=== PATIENT | female | born 1990 | race Caucasian/White ===

== ENCOUNTER 2019-07-09 03:27 | Emergency (ER) | payer OTHER ==
--- OUTSIDE RECORDS SUMMARY | 2019-07-09 03:30 | XMS REPORT ---
:1990 [facility] Address [address] [place] [address] [address] [place] [address] Care Team Providers Name Role Phone Unavailable Unavailable Unavailable Payers Payer Name Policy Type Policy Number Effective Date Expiration Date Problems This patient has no known problems. Allergies, Adverse Reactions, Alerts Allergy Allergy Status Severity Reaction(s) Onset Inactive Treating Comments Name Type Date Date Clinician sesar MARTINEZ Active MO 2017-11 00:00:0 0 Medications This patient has no known medications. Results Test Description Test Time Test Comments Text Results Atomic Results Result Comments - US PELVIS COMPLETE 2018-11-03 18:11:00 Patient Name: SHAUN KENT Unit No: [id number] EXAMS: CPT CODE: [id number] US PELVIS COMPLETE 96473 Pelvic US performed November 03, 2018 1752 hours. COMPARISON: None. CLINICAL HISTORY: Right lower quadrant pain. DISCUSSION: Real-time kessler scale sonography performed of the pelvis via the transabdominal and transvaginal approach. The uterus measures 89 x 39 x 54 mm and contains no posterior intramural fibroid measuring 18 x 12 x 15 mm. The endometrium is homogenous and measures 9 mm in thickness. The left ovary is sonographically normal in appearance measuring 36 x 26 x 26 mm. The right ovary measures 77 x 58 x 59 mm. It contains a complex cyst with lacelike echoes measuring 58 x 47 x 53 mm. Findings are compatible with hemorrhagic cyst. Subcentimeter follicles are seen bilaterally. Normal flow seen in both ovaries. No significant free fluid in seen in the cul de sac. IMPRESSION: 1. Probable hemorrhagic cyst in the right ovary measuring 58 x 47 x 53 mm. Short-term follow-up ultrasound to ensure resolution is advised.. at 1811 Reported and signed by: Jacki Gallagher MD CC: Fco Grant Technologist: Maria Teresa Rodriguez RDMS Probe: Trnscrbd D/ (1810) RochelleNMG Orig Print D/T: S: 11/03/2018 (181) [facility] NAME: YOLISHAUN M Radiology Department PHYS: Fco Boston MD [address] : 1990 AGE: 27 SEX: F [place] [address] LOC: JonhRAD PHONE #: [phone] EXAM DATE: 11/03/2018 STATUS: REG CLI FAX #: [phone] RAD NO: Page 1 Signed Report Patient Name: SHAUN KENT Unit No: [id number] EXAMS: CPT CODE: [id number] US PELVIS COMPLETE 69145 <Continued> [facility] NAME: SHAUN KENT Radiology Department PHYS: Fco Boston MD [address] : 1990 AGE: 27 SEX: F [place] [address] LOC: JonhRAD PHONE #: [phone] EXAM DATE: 11/03/2018 STATUS: REG CLI FAX #: [phone] RAD NO: Page 2 Signed Report - US TRANSVAGINAL W/PELVIS 2018-11-03 18:11:00 Patient Name: SHAUN KENT Unit No: [id number] EXAMS: CPT CODE: [id number] US TRANSVAGINAL W/PELVIS 88251 Pelvic US performed November 03, 2018 1752 hours. COMPARISON: None. CLINICAL HISTORY: Right lower quadrant pain. DISCUSSION: Real-time kessler scale sonography performed of the pelvis via the transabdominal and transvaginal approach. The uterus measures 89 x 39 x 54 mm and contains no posterior intramural fibroid measuring 18 x 12 x 15 mm. The endometrium is homogenous and measures 9 mm in thickness. The left ovary is sonographically normal in appearance measuring 36 x 26 x 26 mm. The right ovary measures 77 x 58 x 59 mm. It contains a complex cyst with lacelike echoes measuring 58 x 47 x 53 mm. Findings are compatible with hemorrhagic cyst. Subcentimeter follicles are seen bilaterally. Normal flow seen in both ovaries. No significant free fluid in seen in the cul de sac. IMPRESSION: 1. Probable hemorrhagic cyst in the right ovary measuring 58 x 47 x 53 mm. Short-term follow-up ultrasound to ensure resolution is advised.. at 1811 Reported and signed by: Jacki Gallagher MD CC: Fco Grant Technologist: Maria Teresa Rodriguez [facility] Probe: [id number] Trnscrbd D/ (1810) MaryG Orig Print D/T: S: 11/03/2018 (1814) [facility] NAME: YOLISHAUN M Radiology Department PHYS: Fco Boston MD [address] : 1990 AGE: 27 SEX: F [place] [address] LOC: Natanael.RAD PHONE #: [phone] EXAM DATE: 11/03/2018 STATUS: REG CLI FAX #: [phone] RAD NO: Page 1 Signed Report Patient Name: SHAUN KENT Unit No: [id number] EXAMS: CPT CODE: [id number] US TRANSVAGINAL W/PELVIS 79615 <Continued> [facility] NAME: SHAUN KENT Radiology Department PHYS: Fco Boston MD [address] : 1990 AGE: 27 SEX: F [place] [address] LOC: Natanael.RAD PHONE #: [phone] EXAM DATE: 11/03/2018 STATUS: REG CLI FAX #: [phone] RAD NO: Page 2 Signed Report PLACENTA THIRD TRIMESTER 2017 14:54:00 ---- RUN DATE: 12/04/17 [facility] PAGE 1 RUN TIME: 1528 Specimen Inquiry RUN USER: INTERFACE PATIENT: SHAUN KENT LOC: [place]ACA U #: [id number] AGE/SX: 27/F [facility] RE12/01/17REG DR: Fco Grant MD : [birth year] BED: A DIS: STATUS: ADM IN TLOC: SPEC #: [id number] RECD: 12/03/17 STATUS: KIRK REQ #: [id number] LOREN: 12/03/17- SUBM DR: Fco Grant MD ENTERED: 12/03/17 SP TYPE: PLACIII CATHY BELLAMY: ORDERED: LEVEL V SURGICA CODES: [id number] - PLACENTA, NOS PROCEDURES: LEVEL V SURGICA (Incomplete) TISSUES: PLACENTA, NOS - PLACENTA CLINICAL HISTORY 26 year old, 38.4 weeks, G1T1P1, section, chorioamnionitis (kr) FINAL DIAGNOSIS Placenta, umbilical cord and membranes: - decidual vasculopathy - placenta is small for gestational age (447 gm, expected weight between 499 and 519 gm) - chorioamnionitis is not identified in the sections taken - trivascular, 19 cm cord inserts 6 cm from the margin Tissue code 1 CPT code(s): 17039 [facility]ora 12/04/17 @ 1660 GROSS DESCRIPTION The specimen was received in a container labeled with the patient's name, unit number, and designated "placenta". The following attributes are observed: Cord insertion: 6 cm from margin Cord length: 19 cm Number of vessels: 3 Cord color: Blue-tomlinson Other cord findings: None surface findings: Steel blue, wrinkled, glistening Vasculature: Displays unremarkable blood vasculature Membranes rupture site: 7 cm to margin Membrane color: Tomlinson Other membrane findings: Thickened and opaque The trimmed placental weight: 447 gm Disk measurement: 20 x 18 x 3.3 cm in greatest dimension Accessory lobes: None CONTINUED ON NEXT PAGE RUN DATE: 12/04/17 [facility] PAGE 2 RUN TIME: 1528 Specimen Inquiry RUN USER: INTERFACE SPEC #: [id number] PATIENT: SHAUN KENT Andrew #[id number] (Continued) - GROSS DESCRIPTION (Continued) Maternal surface: Lobulated and intact Parenchyma: Red, beefy, and spongy Parenchyma lesions: None Cassettes: A through D hz/wpd 12/03/17 @ 1120 MICROSCOPIC DESCRIPTION There is decidual vasculopathy. Chorioamnionitis is not identified in the sections taken. The placenta is small for gestational age. nitin/aurora 12/04/17 @ 1451 Signed Sherwin Tenorio 12/04/17 1454 END OF REPORT
[2019-07-09 04:44] LABS: Absolute Lymphocytes (CBC) 3.1 K/uL (0.7-4.9); Basophils % 0.8 % (0-1.3); Hematocrit 39.7 % (36.0-45.0); Lymphocytes % 35.4 % (15.3-44.8); MPV 9.3 fL (7.6-11.3); RBC Red Blood Cell Count 4.77 M/uL (3.86-4.86)
[2019-07-09 05:03] LABS: Albumin 3.5 g/dL (3.4-5.0); Bilirubin Direct 0.1 mg/dL (0-0.2); Bilirubin Total 0.4 mg/dL (0.2-1.0); Potassium 3.4 mmol/L (3.5-5.1); Protein, Total 7.1 g/dL (6.4-8.2)
[2019-07-09] MEDS ORDERED: POTASSIUM CL SA 10 MEQ TAB PO ONE (06:01)
--- NOTE | 2019-07-09 06:11 | ER ---
Nurse's Notes [facility] Name: Marie Rubio Age: 28 yrs Sex: Female : 1990 Arrival Date: 07/09/2019 Time: 03:31 Bed 5 Private MD: Diagnosis: 1 st Trimester . ( IVF ) Abdominal pain. Headache Presentation: 07/08 03:45 Chief complaint: Patient states: periumbilical abd pain for past couple days and aa1 headache since last night. Pt reports she is also currently 5 weeks . Coronavirus screen: The patient has NOT traveled to a country currently being monitored by the [facility] within the last 14 days. Proceed with normal triage procedures. Ebola Screen: No symptoms or risks identified at this time. Initial Sepsis Screen: Does the patient meet any 2 criteria? No. Patient's initial sepsis screen is negative. Does the patient have a suspected source of infection? No. Patient's initial sepsis screen is negative. Risk Assessment: Do you want to hurt yourself or someone else? Patient reports no desire to harm self or others. Care prior to arrival: None. Activity prior to arrival: None. Transition of care: patient was not received from another setting of care. 03:45 Method Of Arrival: Ambulatory aa1 03:45 Acuity: NABIL 3 aa1 05:04 Onset of symptoms is unknown. ll1 Triage Assessment: 05:03 Headache History: The patient has had previous headaches and this one is similar to ll1 previous episodes. General: Appears in no apparent distress. Pain: Complains of pain in head Pain currently is 4 out of 10 on a pain scale. Quality of pain is described as aching, Pain began 1 day ago. Also complains of no other associated symptoms. FRAME BENDER: 03:45 LMP 06/07/2019 aa1 Historical: - Allergies: 03:51 Codeine; aa1 - Home Meds: 03:51 progesterone micronized oral oral [Active]; Vitamin Oral [Active]; aa1 - PMHx: 03:51 Asthma; aa1 - PSHx: 03:51 ; aa1 - Immunization history:: Flu vaccine is not up to date. - Social history:: Smoking status: Patient/guardian denies using tobacco, the patient reports quitting approximately 5 years ago. Screenin:02 Abuse screen: Denies threats or abuse. Nutritional screening: No deficits noted. ll1 Tuberculosis screening: No symptoms or risk factors identified. Fall Risk None identified. Assessment: 05:00 General: Appears in no apparent distress. Behavior is calm, cooperative. Pain: ll1 Complains of pain in head Pain currently is 4 out of 10 on a pain scale. Quality of pain is described as aching, Pain began 1 day ago. Neuro: Level of Consciousness is awake, alert, obeys commands, Oriented to person, place, time, situation, Top Distribution Executive are equal bilaterally Moves all extremities. Full function Gait is steady, Speech is normal, Facial symmetry appears normal, Pupils are PERRLA, Reports headache in entire. GI: Abdomen is flat, Bowel sounds present X 4 quads. Abd is soft and non tender X 4 quads. Reports mid abdominal pain. 5 weeks . 06:09 Reassessment: No changes from previously documented assessment. Patient and/or family ll1 updated on plan of care and expected duration. Pain level reassessed. Patient is alert, oriented x 3, equal unlabored respirations, skin warm/dry/pink. Vital Signs: 03:45 BP 117 / 86; Pulse 90; Resp 16; Temp 98.7; Pulse Ox 100% on R/A; Weight 72.57 kg; aa1 Height 5 ft. 4 in. (162.56 cm); Pain 4/10; 06:05 BP 109 / 71; Pulse 88; Resp 17; Temp 98.0; Pulse Ox 100% ; Pain 6/10; ll1 03:45 Body Mass Index 27.46 (72.57 kg, 162.56 cm) aa1 06:05 Still doesn't want pain medication. ll1 ED Course: 03:31 Patient arrived in ED. es 03:45 Patient placed in an exam room, on a stretcher. aa1 03:48 Triage completed. aa1 03:57 Rusty Estrada MD is Attending Physician. pkl 04:14 Jodie Parra, HEMA is Primary Nurse. ll1 04:30 Inserted saline lock: 20 gauge in right antecubital area, using aseptic technique. ll1 Blood collected. 05:03 Arm band placed on right wrist. ll1 05:05 Patient has correct armband on for positive identification. ll1 06:06 No provider procedures requiring assistance completed. IV discontinued, intact, ll1 bleeding controlled, No redness/swelling at site. Pressure dressing applied. Administered Medications: 05:59 Drug: K-Dur 20 mEq Route: PO; ll1 06:10 Follow up: Response: No adverse reaction; RASS: Alert and Calm (0) 1 Outcome: 06:08 Discharge ordered by . lucian 06:33 Discharged to home ambulatory. ll1 06:33 Condition: stable 06:33 Discharge instructions given to patient, Instructed on discharge instructions, follow up and referral plans. Demonstrated understanding of instructions, follow-up care. 06:34 Patient left the ED. 1 Signatures: Annemarie Dumont RN RN aa1 Rusty Estrada MD MD pk Nichole Khan Lynsay, RN RN ll1
--- NOTE | 2019-07-09 06:11 | EDPHYS ---
Physician Documentation [facility] Name: Marie Rubio Age: 28 yrs Sex: Female : 1990 Arrival Date: 07/09/2019 Time: 03:31 Bed 5 Private MD: ED Physician Rusty Estrada HPI: 07/08 05:58 This 28 yrs old Female presents to ER via Ambulatory with complaints of pkl Headache, Abdominal Pain, 5wks preg. 05:58 The patient complains of pain to the top of head and forehead. The patient describes pkl the headache as intermittent. Onset: The symptoms/episode began/occurred 2 day(s) ago. Patent said she is about 5 weeks ( IVF ). 05:58 Associated signs and symptoms: Pertinent positives: Periumbilical pain. pkl INTAKE RN: 03:45 LMP 06/07/2019 aa1 Historical: - Allergies: 03:51 Codeine; aa1 - Home Meds: 03:51 progesterone micronized oral oral [Active]; Vitamin Oral [Active]; aa1 - PMHx: 03:51 Asthma; aa1 - PSHx: 03:51 ; aa1 - Immunization history:: Flu vaccine is not up to date. - Social history:: Smoking status: Patient/guardian denies using tobacco, the patient reports quitting approximately 5 years ago. ROS: 05:58 Eyes: Negative for injury, pain, redness, and discharge, ENT: Negative for injury, pkl pain, and discharge, Neck: Negative for injury, pain, and swelling, Cardiovascular: Negative for chest pain, palpitations, and edema, Respiratory: Negative for shortness of breath, cough, wheezing, and pleuritic chest pain. 05:58 Abdomen/GI: Positive for of the periumbilical pain. 05:58 Back: Negative for acute changes. 05:58 : Negative for urinary symptoms. 05:58 MS/extremity: Negative for acute changes. 05:58 Skin: Negative for rash. 05:58 Neuro: Negative for altered mental status. Exam: 05:58 Head/Face: Normocephalic, atraumatic. Eyes: Pupils equal round and reactive to light, pkl extra-ocular motions intact. Lids and lashes normal. Conjunctiva and sclera are non-icteric and not injected. Cornea within normal limits. Periorbital areas with no swelling, redness, or edema. ENT: Nares patent. No nasal discharge, no septal abnormalities noted. Tympanic membranes are normal and external auditory canals are clear. Oropharynx with no redness, swelling, or masses, exudates, or evidence of obstruction, uvula midline. Mucous membranes moist. Neck: Trachea midline, no thyromegaly or masses palpated, and no cervical lymphadenopathy. Supple, full range of motion without nuchal rigidity, or vertebral point tenderness. No Meningismus. Chest/axilla: Normal chest wall appearance and motion. Nontender with no deformity. No lesions are appreciated. Cardiovascular: Regular rate and rhythm with a normal S1 and S2. No gallops, murmurs, or rubs. Normal PMI, no JVD. No pulse deficits. Respiratory: Lungs have equal breath sounds bilaterally, clear to auscultation and percussion. No rales, rhonchi or wheezes noted. No increased work of breathing, no retractions or nasal flaring. Abdomen/GI: Soft, non-tender, with normal bowel sounds. No distension or tympany. No guarding or rebound. No evidence of tenderness throughout. Back: No spinal tenderness. No costovertebral tenderness. Full range of motion. Skin: Warm, dry with normal turgor. Normal color with no rashes, no lesions, and no evidence of cellulitis. MS/ Extremity: Pulses equal, no cyanosis. Neurovascular intact. Full, normal range of motion. Neuro: Awake and alert, GCS 15, oriented to person, place, time, and situation. Cranial nerves II-XII grossly intact. Motor strength 5/5 in all extremities. Sensory grossly intact. Cerebellar exam normal. Normal gait. 05:58 : No vaginal bleeding. Vital Signs: 03:45 BP 117 / 86; Pulse 90; Resp 16; Temp 98.7; Pulse Ox 100% on R/A; Weight 72.57 kg; aa1 Height 5 ft. 4 in. (162.56 cm); Pain 4/10; 06:05 BP 109 / 71; Pulse 88; Resp 17; Temp 98.0; Pulse Ox 100% ; Pain 6/10; ll1 03:45 Body Mass Index 27.46 (72.57 kg, 162.56 cm) aa1 06:05 Still doesn't want pain medication. ll1 MDM: 03:57 Patient medically screened. pkl 05:58 Data reviewed: vital signs, nurses notes, lab test result(s). ED course: Discussed lab. pkl results with patient. Advised to followup with her fertility Doctor on Thursday. Return if necessary. Patient understood instructions. 07/08 04:17 Order name: Abo/rh Typing; Complete Time: 05:53 aa07/08 04:17 Order name: Basic Metabolic Panel; Complete Time: 05:53 07/08 04:17 Order name: CBC with Diff; Complete Time: 05:53 07/08 04:17 Order name: Quantitative Hcg; Complete Time: 05:53 aa07/08 04:17 Order name: Lipase; Complete Time: 05:53 07/08 04:17 Order name: LFT's; Complete Time: 05:53 07/08 04:17 Order name: IV Saline Lock; Complete Time: 06:12 aa07/08 04:17 Order name: Labs collected and sent; Complete Time: 06:12 aa Administered Medications: 05:59 Drug: K-Dur 20 mEq Route: PO; ll1 06:10 Follow up: Response: No adverse reaction; RASS: Alert and Calm (0) ll1 Disposition: 07/09/19 06:08 Discharged to Home. Impression: 1 st Trimester . ( IVF ) Abdominal pain. Headache. - Condition is Stable. - Medication Reconciliation Form, Thank You Letter, Antibiotic Education, Prescription Opioid Use form. - Follow up: Private Physician; When: 2 - 3 days; Reason: Re-evaluation by your physician. - Problem is new. - Symptoms have improved. Signatures: Dispatcher [employer] Annemarie Chavira RN RN aa1 Rusty Estrada MD MD pkl Jodie Parra RN RN ll1 Corrections: (The following items were deleted from the chart) 06:34 06:08 07/09/2019 06:08 Discharged to Home. Impression: 1 st Trimester . ( IVF ll1 ) Abdominal pain. Headache. Condition is Stable. Forms are Medication Reconciliation Form, Thank You Letter, Antibiotic Education, Prescription Opioid Use. Follow up: Private Physician; When: 2 - 3 days; Reason: Re-evaluation by your physician. Problem is new. Symptoms have improved. pkl
[2019-07-09 06:54] VITALS: O2SAT 100
[2019-07-09 06:56] VITALS: BP 109/71; TEMP 98
== END 2019-07-09 06:34 | disposition home or self-care (01) ==
LOC: ER 03:27
DX: O26.891 Other specified pregnancy related conditions, first trimester (principal); Z3A.01 Less than 8 weeks gestation of pregnancy; Z88.5 Allergy status to narcotic agent
CPT/HCPCS: 36415; 80048; 80076; 83690; 84702; 85025; 86900; 86901; 99283

== ENCOUNTER 2022-05-20 17:16 | Emergency (ER) | payer OTHER ==
--- OUTSIDE RECORDS SUMMARY | 2022-05-20 17:20 | XMS REPORT | Continuity of Care Document ---
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 = NA) 135 mEq/L 135-145 N POTASSIUM (test code = K) 4.0 mEq/L 3.5-5.0 N CHLORIDE (test code = CL) 103 mEq/L 100-115 N CARBON DIOXIDE (test code = CO2) 26 mEq/L 22-31 N ANION GAP (test code = GAP) 9.80 10-20 L GLUCOSE (test code = GLU) 94 mg/dL 65-110 N BLOOD UREA NITROGEN (test code = 5 mg/dL 7-18 L BUN) GLOMERULAR FILTRATION RATE (test 98 ml/min >60 N code = GFR) CREATININE (test code = CREAT) 0.7 mg/dL 0.5-1.0 N CALCIUM (test code = CA) 7.8 mg/dL 8.4-10.2 L HGB [id number] 07:14:00 Test Item Value Reference Range Interpretation Comments HEMOGLOBIN (test code = HGB) 8.9 g/dL 10.7-13.9 L HEMATOCRIT (test code = HCT) 27.1 % 32.1-42.1 L COMPREHENSIVE METABOLIC [id number] 00:48:00 Test Item Value Reference Range Interpretation Comments SODIUM (test code = NA) 133 mEq/L 135-145 L POTASSIUM (test code = K) 3.8 mEq/L 3.5-5.0 N CHLORIDE (test code = CL) 101 mEq/L 100-115 N CARBON DIOXIDE (test code = CO2) 27 mEq/L 22-31 N ANION GAP (test code = GAP) 8.70 10-20 L GLUCOSE (test code = GLU) 134 mg/dL 65-110 H BLOOD UREA NITROGEN (test code = 4 mg/dL 7-18 L BUN) GLOMERULAR FILTRATION RATE (test 98 ml/min >60 N code = GFR) CREATININE (test code = CREAT) 0.7 mg/dL 0.5-1.0 N TOTAL PROTEIN (test code = PROT) 4.5 gm/dL 6.3-8.2 L ALBUMIN (test code = ALB) 2.1 gm/dL 3.4-4.8 L CALCIUM (test code = CA) 7.6 mg/dL 8.4-10.2 L BILIRUBIN TOTAL (test code = BILT) 0.3 mg/dL 0.2-1.0 N SGOT/AST (test code = AST) 17 units/L 15-37 N SGPT/ALT (test code = ALT) 15 units/L 12-78 N ALKALINE PHOSPHATASE TOTAL (test 75 units/L 46-116 N code = ALKP) PROTHROMBIN [id number] 00:47:00 Test Item Value Reference Range Interpretation Comments PROTHROMBIN TIME PATIENT (test code 10.9 secs 10.4-12.4 N = PTP) THROMBOPLASTIN TIME [id number] 00:47:00 Test Item Value Reference Range Interpretation Comments THROMBOPLASTIN TIME PARTIAL (test 24.9 secs 22-38 N code = PTT) [id number] 00:47:00 Test Item Value Reference Range Interpretation Comments FIBRINOGEN (test code = FIB) 227 mg/dL 309-518 L HGB [id number] 00:34:00 Test Item Value Reference Range Interpretation Comments HEMOGLOBIN (test code = HGB) 10.0 g/dL 10.7-13.9 L HEMATOCRIT (test code = HCT) 29.6 % 32.1-42.1 L PROTHROMBIN [id number] 18:39:00 Test Item Value Reference Range Interpretation Comments PROTHROMBIN TIME PATIENT (test code 11.1 secs 10.4-12.4 N = PTP) Comments to [employer]: [id number] TIME [id number] 18:39:00 Test Item Value Reference Range Interpretation Comments THROMBOPLASTIN TIME PARTIAL (test 24.8 secs 22-38 N code = PTT) Comments to [employer] Associate: [id number] 18:39:00 Test Item Value Reference Range Interpretation Comments FIBRINOGEN (test code = FIB) 253 mg/dL 309-518 L Comments to [employer] Associate: [id number] METABOLIC [id number] 18:36:00 Test Item Value Reference Range Interpretation Comments SODIUM (test code = NA) 137 mEq/L 135-145 N POTASSIUM (test code = K) 3.3 mEq/L 3.5-5.0 L CHLORIDE (test code = CL) 103 mEq/L 100-115 N CARBON DIOXIDE (test code = CO2) 27 mEq/L 22-31 N ANION GAP (test code = GAP) 10.10 10-20 N GLUCOSE (test code = GLU) 183 mg/dL 65-110 H BLOOD UREA NITROGEN (test code = 5 mg/dL 7-18 L BUN) GLOMERULAR FILTRATION RATE (test 98 ml/min >60 N code = GFR) CREATININE (test code = CREAT) 0.7 mg/dL 0.5-1.0 N TOTAL PROTEIN (test code = PROT) 4.9 gm/dL 6.3-8.2 L ALBUMIN (test code = ALB) 2.2 gm/dL 3.4-4.8 L CALCIUM (test code = CA) 7.7 mg/dL 8.4-10.2 L BILIRUBIN TOTAL (test code = BILT) 0.2 mg/dL 0.2-1.0 N SGOT/AST (test code = AST) 13 units/L 15-37 L SGPT/ALT (test code = ALT) 13 units/L 12-78 N ALKALINE PHOSPHATASE TOTAL (test 89 units/L 46-116 N code = ALKP) CBC W/AUTO [id number] 18:07:00 Test Item Value Reference Range Interpretation Comments WHITE BLOOD CELL (test 12.2 K/mm3 6.6-12.1 H Resul ts verified by code = WBC) repeat analysis RED BLOOD CELL (test 3.35 M/mm3 3.45-5.01 L Results verified by code = RBC) repeat analysis HEMOGLOBIN (test code = 9.6 g/dL 10.7-13.9 L HGB) HEMATOCRIT (test code = 30.1 % 32.1-42.1 L HCT) MEAN CELL VOLUME (test 90 fL 84.1-94.8 N code = MCV) MEAN CELL HGB (test code 28.7 pg 27-35 N = MCH) MEAN CELL HGB 31.9 gm/dL 32.2-34.1 L CONCETRATION (test code = MCHC) RED CELL DISTRIBUTION 13.9 % 12.4-16.5 N WIDTH (test code = RDW) PLATELET COUNT (test 215 K/mm3 133-385 N code = PLT) MEAN PLATELET VOLUME 11.4 fl 9.1-12.7 N (test code = MPV) NEUTROPHIL % (test code 82.9 % 56.5-79.4 H = NT%) LYMPHOCYTE % (test code 13.0 % 14.3-34.3 L = LY%) MONOCYTE % (test code = 2.6 % 5.1-10.4 L MO%) EOSINOPHIL % (test code 0.2 % 0.1-3.0 N = EO%) BASOPHIL % (test code = 0.2 % 0.1-1.0 N BA%) NEUTROPHIL # (test code 10.1 K/mm3 = NT#) LYMPHOCYTE # (test code 1.6 K/mm3 = LY#) MONOCYTE # (test code = 0.3 K/mm3 MO#) EOSINOPHIL # (test code 0.03 K/mm3 = EO#) BASOPHIL # (test code = 0.0 K/mm3 BA#) RBC MORPHOLOGY REQUIRED NORMAL NORMAL (test code = RBCM) PLATELET MORPHOLOGY NORMAL NORMAL REQUIRED (test code = PLTMR) AG HEPATITIS B [id number] 15:19:00 Test Item Value Reference Range Interpretation Comments AG HEPATITIS B SURFACE (test code NONREACTIVE NONREACTIVE = HBSAG) Comments to [employer] Associate: [id number] CONSENT FORM SIGNED FOR HIV TESTING? YAB HEPATITIS C [id number] 15:19:00 Test Item Value Reference Range Interpretation Comments AB HEPATITIS C (test code = NONREACTIVE NONREACTIVE HCVAB) SIGNAL TO CUTOFF (test code = 0.08 <0.80 N CUTOFF) Comments to [employer] Associate: [id number] CONSENT FORM SIGNED FOR HIV TESTING? YAB [id number] 15:19:00 Test Item Value Reference Range Interpretation Comments AB TREPONEMA (test code = TREPAB) NONREACTIVE NONREACTIVE Comments to [employer] Associate: [id number] CONSENT FORM SIGNED FOR HIV TESTING? YAB HIV 1 15:19:00 Test Item Value Reference Range Interpretation Comments AB HIV 1 2 (test NONREACTIVE NONREACTIVE [facility] code = [id number]) 4th Gen HIV Ag/Ab Combo Screen Comments to [employer] Associate: [id number] CONSENT FORM SIGNED FOR HIV TESTING? YAG HEPATITIS B [id number] 15:18:00 Test Item Value Reference Range Interpretation Comments AG HEPATITIS B SURFACE (test code NONREACTIVE NONREACTIVE = HBSAG) Comments to [employer] Associate: [id number] CONSENT FORM SIGNED FOR HIV TESTING? YAB HEPATITIS C [id number] 15:18:00 Test Item Value Reference Range Interpretation Comments AB HEPATITIS C (test code = NONREACTIVE NONREACTIVE HCVAB) SIGNAL TO CUTOFF (test code = 0.08 <0.80 N CUTOFF) Comments to [employer] Associate: [id number] CONSENT FORM SIGNED FOR HIV TESTING? YAB [id number] 15:18:00 Test Item Value Reference Range Interpretation Comments AB TREPONEMA (test code = TREPAB) NONREACTIVE NONREACTIVE Comments to [employer] Associate: [id number] CONSENT FORM SIGNED FOR HIV TESTING? YAB HIV 1 15:18:00 Test Item Value Reference Range Interpretation Comments AB HIV 1 2 (test code = [id number]) NONREACTIVE Comments to [employer] Associate: [id number] CONSENT FORM SIGNED FOR HIV TESTING? YAG HEPATITIS B [id number] 15:00:00 Test Item Value Reference Range Interpretation Comments AG HEPATITIS B SURFACE (test code NONREACTIVE NONREACTIVE = HBSAG) Comments to [employer] Associate: [id number] CONSENT FORM SIGNED FOR HIV TESTING? YAB HEPATITIS C [id number] 15:00:00 Test Item Value Reference Range Interpretation Comments AB HEPATITIS C (test code = HCVAB) NONREACTIVE SIGNAL TO CUTOFF (test code = CUTOFF) <0.80 Comments to [employer] Associate: [id number] CONSENT FORM SIGNED FOR HIV TESTING? YAB [id number] 15:00:00 Test Item Value Reference Range Interpretation Comments AB TREPONEMA (test code = TREPAB) NONREACTIVE NONREACTIVE Comments to [employer] Associate: [id number] CONSENT FORM SIGNED FOR HIV TESTING? YAB HIV 1 15:00:00 Test Item Value Reference Range Interpretation Comments AB HIV 1 2 (test code = [id number]) NONREACTIVE Comments to [employer] Associate: [id number] CONSENT FORM SIGNED FOR HIV TESTING? Y COMPREHENSIVE METABOLIC [id number] 14:16:00 Test Item Value Reference Range Interpretation Comments SODIUM (test code = NA) 136 mEq/L 135-145 N POTASSIUM (test code = K) 3.9 mEq/L 3.5-5.0 N CHLORIDE (test code = CL) 102 mEq/L 100-115 N CARBON DIOXIDE (test code = CO2) 23 mEq/L 22-31 N ANION GAP (test code = GAP) 14.50 10-20 N GLUCOSE (test code = GLU) 83 mg/dL 65-110 N BLOOD UREA NITROGEN (test code = 5 mg/dL 7-18 L BUN) GLOMERULAR FILTRATION RATE (test 117 ml/min >60 N code = GFR) CREATININE (test code = CREAT) 0.6 mg/dL 0.5-1.0 N TOTAL PROTEIN (test code = PROT) 6.1 gm/dL 6.3-8.2 L ALBUMIN (test code = ALB) 2.8 gm/dL 3.4-4.8 L CALCIUM (test code = CA) 8.6 mg/dL 8.4-10.2 N BILIRUBIN TOTAL (test code = 0.2 mg/dL 0.2-1.0 N BILT) SGOT/AST (test code = AST) 11 units/L 15-37 L SGPT/ALT (test code = ALT) 16 units/L 12-78 N ALKALINE PHOSPHATASE TOTAL (test 114 units/L 46-116 N code = ALKP) COVID 19 Asymptomatic IH [id number] 13:48:00 Test Item Value Reference Range Interpretation Comments COVID 19 NEGATIVE NEGATIVE This test has b een Asymptomatic IH AG authorize d only for the (test code = detection ofpro teins from COVNONPUIAG) SARS-CoV-2, not for any other viruses orpathogens. Ne gative results should be treated as presumptive andconfirmed wi th a molecular assay , if necessary for patientmanageme nt. Negative result s do not rule out COVID- 19 andshould not b e used as the sole basis for treatment orpat ient management candie jones including infec tion controldecision s. Negative result s should be considered i n thecontext of a patient's recent exposure s, history and thepresence of clinical signs and symptoms consis tent withCOVID-19. T his test has not been FD A cleared or approved; th e test hasbeen authori mark by FDA under an Emerge ncy Use Authorization(E UA) for use by laborato romario certified under the CLIA thatmeet the re quirements to perform mode rate, high or waivedcomple xity tests. This apollo t is authorized for use at thePoint of Car e (POC), i.e., in patien t care settingsoperati ng under a CLIA Certificat e of Waiver, Certifi alana ofCompliance, o r Certificate of Accreditation. This test is only authori zejoaquin for the duration of thedeclaration that circumstances e xist justifying theauthorizatio n of emergency use o f in vitro diagnostic test sfor detection and/o r diagnosis of CO VID-19 under Ldempxc59 4(b)(1) of the Act, 21 U.S .C. 360bbb-3(b)(1), unless theauthorizatio n is terminated or r evoked sooner. Comments to [employer] Marketing Associate: [id number] Comment: RAPID TESTCBC W/AUTO DIFF 2020-03-05 13:32:00 Test Item Value Reference Range Interpretation Comments WHITE BLOOD CELL (test code = WBC) 7.7 K/mm3 6.6-12.1 N RED BLOOD CELL (test code = RBC) 4.03 M/mm3 3.45-5.01 N HEMOGLOBIN (test code = HGB) 11.6 g/dL 10.7-13.9 N HEMATOCRIT (test code = HCT) 35.3 % 32.1-42.1 N MEAN CELL VOLUME (test code = MCV) 88 fL 84.1-94.8 N MEAN CELL HGB (test code = MCH) 28.8 pg 27-35 N MEAN CELL HGB CONCETRATION (test 32.9 gm/dL 32.2-34.1 N code = MCHC) RED CELL DISTRIBUTION WIDTH (test 13.8 % 12.4-16.5 N code = RDW) PLATELET COUNT (test code = PLT) 196 K/mm3 133-385 N MEAN PLATELET VOLUME (test code = 11.4 fl 9.1-12.7 N MPV) NEUTROPHIL % (test code = NT%) 70.0 % 56.5-79.4 N LYMPHOCYTE % (test code = LY%) 21.4 % 14.3-34.3 N MONOCYTE % (test code = MO%) 6.8 % 5.1-10.4 N EOSINOPHIL % (test code = EO%) 0.8 % 0.1-3.0 N BASOPHIL % (test code = BA%) 0.3 % 0.1-1.0 N NEUTROPHIL # (test code = NT#) 5.4 K/mm3 LYMPHOCYTE # (test code = LY#) 1.6 K/mm3 MONOCYTE # (test code = MO#) 0.5 K/mm3 EOSINOPHIL # (test code = EO#) 0.06 K/mm3 BASOPHIL # (test code = BA#) 0.0 K/mm3 RBC MORPHOLOGY REQUIRED (test code NORMAL NORMAL = RBCM) PLATELET MORPHOLOGY REQUIRED (test NORMAL NORMAL code = PLTMR) COMPREHENSIVE METABOLIC [id number] 10:58:00 Test Item Value Reference Range Interpretation Comments SODIUM (test code = NA) 138 mEq/L 135-145 N POTASSIUM (test code = K) 3.6 mEq/L 3.5-5.0 N CHLORIDE (test code = CL) 104 mEq/L 100-115 N CARBON DIOXIDE (test code = CO2) 26 mEq/L 22-31 N ANION GAP (test code = GAP) 12.00 10-20 N GLUCOSE (test code = GLU) 143 mg/dL 65-110 H BLOOD UREA NITROGEN (test code = 7 mg/dL 7-18 N BUN) GLOMERULAR FILTRATION RATE (test 98 ml/min >60 N code = GFR) CREATININE (test code = CREAT) 0.7 mg/dL 0.5-1.0 N TOTAL PROTEIN (test code = PROT) 5.9 gm/dL 6.3-8.2 L ALBUMIN (test code = ALB) 2.6 gm/dL 3.4-4.8 L CALCIUM (test code = CA) 8.2 mg/dL 8.4-10.2 L BILIRUBIN TOTAL (test code = BILT) 0.2 mg/dL 0.2-1.0 N SGOT/AST (test code = AST) 13 units/L 15-37 L SGPT/ALT (test code = ALT) 16 units/L 12-78 N ALKALINE PHOSPHATASE TOTAL (test 86 units/L 46-116 N code = ALKP) CBC W/AUTO [id number] 10:48:00 Test Item Value Reference Range Interpretation Comments WHITE BLOOD CELL (test code = WBC) 9.7 K/mm3 6.6-12.1 N RED BLOOD CELL (test code = RBC) 3.76 M/mm3 3.45-5.01 N HEMOGLOBIN (test code = HGB) 11.2 g/dL 10.7-13.9 N HEMATOCRIT (test code = HCT) 34.1 % 32.1-42.1 N MEAN CELL VOLUME (test code = MCV) 91 fL 84.1-94.8 N MEAN CELL HGB (test code = MCH) 29.8 pg 27-35 N MEAN CELL HGB CONCETRATION (test 32.8 gm/dL 32.2-34.1 N code = MCHC) RED CELL DISTRIBUTION WIDTH (test 13.5 % 12.4-16.5 N code = RDW) PLATELET COUNT (test code = PLT) 199 K/mm3 133-385 N MEAN PLATELET VOLUME (test code = 10.9 fl 9.1-12.7 N MPV) NEUTROPHIL % (test code = NT%) 78.8 % 56.5-79.4 N LYMPHOCYTE % (test code = LY%) 15.6 % 14.3-34.3 N MONOCYTE % (test code = MO%) 4.4 % 5.1-10.4 L EOSINOPHIL % (test code = EO%) 0.1 % 0.1-3.0 N BASOPHIL % (test code = BA%) 0.2 % 0.1-1.0 N NEUTROPHIL # (test code = NT#) 7.7 K/mm3 LYMPHOCYTE # (test code = LY#) 1.5 K/mm3 MONOCYTE # (test code = MO#) 0.4 K/mm3 EOSINOPHIL # (test code = EO#) 0.01 K/mm3 BASOPHIL # (test code = BA#) 0.0 K/mm3 RBC MORPHOLOGY REQUIRED (test code NORMAL NORMAL = RBCM) PLATELET MORPHOLOGY REQUIRED (test NORMAL NORMAL code = PLTMR) COVID 19 Asymptomatic IH [id number] 07:16:00 Test Item Value Reference Range Interpretation Comments COVID 19 NEGATIVE NEGATIVE This test has b een Asymptomatic IH AG authorize d only for the (test code = detection ofpro teins from COVNONPUIAG) SARS-CoV-2, not for any other viruses orpathogens. Ne gative results should be treated as presumptive andconfirmed wi th a molecular assay , if necessary for patientmanageme nt. Negative result s do not rule out COVID- 19 andshould not b e used as the sole basis for treatment orpat ient management deci sions, including infec tion controldecision s. Negative result s should be considered i n thecontext of a patient's recent exposure s, history and thepresence of clinical signs and symptoms consis tent withCOVID-19. T his test has not been FD A cleared or approved; th e test hasbeen authori zed by FDA under an Emerge ncy Use Authorization(E UA) for use by laborato romario certified under the CLIA thatmeet the re quirements to perform mode rate, high or waivedcomple xity tests. This apollo t is authorized for use at thePoint of Car e (POC), i.e., in patien t care settingsoperati ng under a CLIA Certificat e of Waiver, Certifi alana ofCompliance, o r Certificate of Accreditation. This test is only authori zed for the duration of thedeclaration that circumstances e xist justifying theauthorizatio n of emergency use o f in vitro diagnostic test sfor detection and/o r diagnosis of CO VID-19 under Otkzrxl62 4(b)(1) of the Act, 21 U.S .C. 360bbb-3(b)(1), unless theauthorizatio n is terminated or r evoked sooner. - FET BIO PH [place] W/O [id number] 06:59:00 [facility] 1990 Sex: F Patient Name: SHAUN KENT Unit No: [id number] EXAMS: CPT CODE: [id number] US FET BIO PH AZ W/O [id number] STUDY: - US FET BIO PH [place] W/O NST 02/05/2020 5:39 AM Ordering Physician: Susanne Muñoz MD Patient Name: SHAUN KENT MR: [id number] : 1990; Age: 29 years y/o Female Clinical Indication: VAGINAL BLEEDING Comparison: 01/30/2020 TECHNIQUE: Multiple static images from a biophysical profile ultrasound are submitted for interpretation. Additionally, the data sheet containing the observations of the technologist during the examination is provided. FINDINGS: GENERAL Single live intrauterine at 34 weeks 3 days with heart rate of 146 bpm. Presentation: Cephalic Placental location and grade: Posterior grade 2. A placental wolf is seen measuring 3.5 x 1.8 x 1.6 cm Placenta previa: No. Amniotic fluid: Normal in appearance. PAKO: 9.7 cm. Single deepest pocket 3.9 x 5.8 cm Cervix: Closed. Length: 3.1 cm. Normal maternal ovaries measuring 4.7 x 1.8 x 2.4 cm on the right and 3.8 x 2.3 x 3.6 cm on the left. Tiny subcentimeter follicles are present bilaterally. The structures are not individually characterized on this examination, but no abnormality is demonstrated. BIOPHYSICAL OBSERVATIONS breathing movements: 2/2 tone: 2/2 gross body motion: 2/2 Amniotic fluid volume: 2/2 IMPRESSION: Single live intrauterine at 34 weeks 3 days. Normal biophy sical profile at 8/8 points. PAKO 9.7 cm. The structures are not individually characterized onthis examination, but no abnormality is demonstrated. [facility] NAME: SHAUN KENT Radiology Department PHYS: Susanne Melo MD [address] : 1990 AGE: 29 SEX: F [place] [address] LOC: UNK PHONE #: [phone] EXAM DATE: 02/05/2020 STATUS: DIS IN FAX #: [phone] RAD NO: Page 1 Signed Report (CONTINUED) Patient Name: SHAUN KENT Unit No: [id number] EXAMS: CPT CODE: [id number] US FET BIO PH [place] W/O NST [address]77 <Continued> SL: TPAINTER-H at 0659 Reported and signedby: Taz Salinas MD CC: Susanne Muñoz MD; Sterling Grant Technologist: Rima Monroe RDMS Probe: Trnscrbd D/ (0659) [email or web address] Orig Print D/T: S: 02/05/2020 (0702) [facility] NAME: SHAUN KENT Radiology Department PHYS: Susanne Melo MD [address] : 1990 AGE: 29 SEX: F [place] [address] LOC: UNK PHONE #: [phone] EXAM DATE: 02/05/2020 STATUS: DIS IN FAX #: [phone] RAD NO: Page 2 Signed Report Patient Name: SHAUN KENT Unit No: [id number] EXAMS: CPT CODE: [id number] US FET BIO PH [place] W/O NST [address]244 <Continued> [facility] NAME: SHAUN KENT Radiology Department PHYS: Susanne Melo MD [address] : 1990 AGE: 29 SEX: F [place] [address] LOC: UNK PHONE #: [phone] EXAM DATE: 02/05/2020 STATUS: DIS IN FAX #: [phone] RAD NO: Page 3 Signed Report- US FET BIO PH [place] W/O [id number] 06:59:00 Patient Name: SHAUN KENT Unit No: [id number] EXAMS: CPT CODE: [id number] US FET BIO PH [place] W/O NST 92765 STUDY: - US FET BIO PH [place] W/O NST 02/05/2020 5:39 AM Ordering Physician: Susanne Muñoz MD Patient Name: SHAUN KENT MR: [id number] : 1990; Age: 29 years y/o Female Clinical Indication: VAGINAL BLEEDING Comparison: 01/30/2020 TECHNIQUE: Multiple static images from a biophysical profile ultrasound are submitted for interpretation. Additionally, the data sheet containing the observations of the technologist during the examination is provided. FINDINGS: GENERAL Single live intrauterine at 34 weeks 3 days with heart rate of 146 bpm. Presentation: Cephalic Placental location and grade: Posterior grade 2. A placental wolf is seen measuring 3.5 x 1.8 x 1.6 cm Placenta previa: No. Amniotic fluid: Normal in appearance. PAKO: 9.7 cm. Single deepest pocket 3.9 x 5.8 cm Cervix: Closed. Length: 3.1 cm. Normal maternal ovaries measuring 4.7 x 1.8 x 2.4 cm on the right and3.8 x 2.3 x 3.6 cm on the left. Tiny subcentimeter follicles are present bilaterally. The structures are not individually characterized on this examination, but no abnormality is demonstrated. BIOPHYSICAL OBSERVATIONS breathing movements: 2/2 tone: 2/2 gross body motion: 2/2 Amniotic fluid volume: 2/2 IMPRESSION: Single live intrauterine at 34 weeks 3 days. Normal bi ophysical profile at 8/8 points. PAKO 9.7 cm. The structures are not individually characterizedon this examination, but no abnormality is demonstrated. [facility] NAME: SHAUN KENT Radiology Department PHYS: Susanne Melo MD [address] : 1990 AGE: 29 SEX: F [place], [place] [address] LOC: F.OCTAVIO PHONE #: [phone] EXAM DATE: 02/05/2020STATUS: REG ER FAX #: [phone] RAD NO: Page 1 Signed Report (CONTINUED) Patient Name: SHAUN KENT Unit No: [id number] EXAMS: CPT CODE: [id number] FET BIO PH [place] W/O NST [address]206 (Continued) SL: TPAINTER-H at 0659 Reported and signed by: Taz Salinas MD CC: Susanne Muñoz MD; Sterling Grant Technologist: Rima Monroe RDMS Probe: Trnscrbd D/ (0659) [email or web address] Orig Print D/T: S: 02/05/2020 (0702) [facility] NAME: SHAUN KENT Radiology Department PHYS: Susanne Melo MD [address] : 1990 AGE: 29 SEX: F [place] [address] LOC: F.OCTAVIO PHONE #: [phone] EXAM DATE: 02/05/2020 STATUS: REG ER FAX #: [phone] RAD NO: Page 2 Signed Report Patient Name: SHAUN KENT Unit No: [id number] EXAMS: CPT CODE: [id number] FET BIO PH [place] W/O NST 35701 (Continued) [facility] NAME: SHAUN KENT Radiology Department PHYS: Susanne Melo MD [address] : 1990 AGE: 29 SEX: F [place] [address] LOC: F.OCTAVIO PHONE #: [phone] EXAM DATE: 02/05/2020 STATUS: REG ER FAX #: [phone] RAD NO: Page3 Signed ReportCBC W/AUTO [id number] 06:17:00 Test Item Value Reference Range Interpretation Comments WHITE BLOOD CELL (test code = WBC) 9.5 K/mm3 6.6-12.1 N RED BLOOD CELL (test code = RBC) 3.88 M/mm3 3.45-5.01 N HEMOGLOBIN (test code = HGB) 11.5 g/dL 10.7-13.9 N HEMATOCRIT (test code = HCT) 34.5 % 32.1-42.1 N MEAN CELL VOLUME (test code = MCV) 89 fL 84.1-94.8 N MEAN CELL HGB (test code = MCH) 29.6 pg 27-35 N MEAN CELL HGB CONCETRATION (test 33.3 gm/dL 32.2-34.1 N code = MCHC) RED CELL DISTRIBUTION WIDTH (test 13.5 % 12.4-16.5 N code = RDW) PLATELET COUNT (test code = PLT) 178 K/mm3 133-385 N MEAN PLATELET VOLUME (test code = 11.0 fl 9.1-12.7 N MPV) NEUTROPHIL % (test code = NT%) 71.9 % 56.5-79.4 N LYMPHOCYTE % (test code = LY%) 20.3 % 14.3-34.3 N MONOCYTE % (test code = MO%) 5.5 % 5.1-10.4 N EOSINOPHIL % (test code = EO%) 1.2 % 0.1-3.0 N BASOPHIL % (test code = BA%) 0.4 % 0.1-1.0 N NEUTROPHIL # (test code = NT#) 6.8 K/mm3 LYMPHOCYTE # (test code = LY#) 1.9 K/mm3 MONOCYTE # (test code = MO#) 0.5 K/mm3 EOSINOPHIL # (test code = EO#) 0.11 K/mm3 BASOPHIL # (test code = BA#) 0.0 K/mm3 RBC MORPHOLOGY REQUIRED (test code NORMAL NORMAL = RBCM) PLATELET MORPHOLOGY REQUIRED (test NORMAL NORMAL code = PLTMR) - [facility] [place] W/O [id number] 13:26:00 [facility] : 1990 Sex: F Patient Name: SHAUN KENT Unit No: [id number] EXAMS: CPT CODE: [id number] [place] FET BIO PH [place] W/O NST [address] [facility] [address], [place] [address] BIOPHYSICAL PROFILE ULTRASOUND REPORT Pat. Name: SHAUN KENT MPat. 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 motion and organs seen: heart motion seen body and limb movements observed tone noted breathing movements observed Placental location: Posterior Placental maturity : Grade 2 There is no evidence of placenta previa. Amniotic fluid volume is normal. Uterus and adnexa: No significant abnormality is seen. Thank you for allowing us to participate in the care ofthis patient. Glenn Agarwal M.D. Electronic Signature 01/30/2020 01:26pm [facility] NAME: SHAUN KENT Radiology Department PHYS: Sterling Boston MD [address] : 1990 AGE: 29 SEX: F [place], [place] [address] LOC: UNK PHONE #:[phone] EXAM DATE: 01/30/2020 STATUS: DEP ER FAX #: [phone] RAD NO: Page 1 Signed Report (CONTINUED) Patient Name: SHAUN KENT Unit No: [id number] EXAMS: CPT CODE: [id number] US FET BIO PH [place] W/O NST [address]63 <Continued> at 1326 Reported and signed by: Glenn Agarwal MD CC: Sterling Grant Technologist: Mallorie Sommer RDMS Probe: Trnscrbd D/ (1326) t.SDR.YOS Orig Print D/T: S: 01/30/2020 (1326) [facility] NAME: YOLISHAUN M Radiology Department PHYS: Sterling Boston MD [address] : 1990 AGE: 29 SEX: F [place] [address] LOC: UNK PHONE #: [phone] EXAM DATE: 01/30/2020 STATUS: DEP ER FAX #: [phone] RAD NO: Page 2 Signed Report PatientName: SHAUN KENT Andrew Unit No: [id number] EXAMS: CPT CODE: [id number] US FET BIO PH [place] W/O NST [address]368 <Continued> [facility] NAME: SHAUN KENT Radiology Department PHYS: Sterling Boston MD [address] : 1990 AGE: 29 SEX: F [place] [address] LOC: UNK PHONE #: [phone] EXAM DATE: 01/30/2020 STATUS: DEP ER FAX #: [phone] RAD NO: Page 3 Signed Report- US FET BIO PH [place] W/O [id number] 13:26:00 Patient Name: SHAUN KENT Unit No: [id number] EXAMS: CPT CODE: [id number] US FET BIO PH [place] W/O NST [address] [facility] [address] [place], [place] [address] BIOPHYSICAL PROFILE ULTRASOUND REPORT Pat. Name: SHAUN KENT Pat. No: [id number] Study Date: 01/30/2020 12:27pm , Age: 08 1990, 28 LMP: Unknown GA Selected: 33w4d (From Known E) CHELY: 03/15/2020 Referring MD: NELLY AVILES Fixture Repairer Fabricator: Mallorie Sommer RDMS CPT4: USBPPWONST Admitting MD: NELLY AVILES Hist/Ind: DFM SCAN 2 Cervical Length: 3.8 cm Heart Rate: 137 bpm Amniotic Fluid Index: 17.6cm (08.2- 24.7) Q1: 5.0cm Q2: 4.4cm Q3: 2.9cm Q4: 5.3cm Biophysical Profile: 12/09 Breathin Tone: 2 Movement: 2 AFV: 2 MATERNAL ANATOMY Ovaries LxHxW (cm) Right 4.9 x 2.8 x 2.9 Vol: 20.8cc Left 4.6 x 1.9 x 3.1 Vol: 14.2cc CLINICAL SUMMARY Type of Gestation: Spear Intrauterine in vertex presentation. motion and organs seen: heart motion seen body and limb movements observed tone noted breathing movements observed Placental location: Posterior Placental maturity : Grade 2 There is no evidence of placenta previa. Amniotic fluid volume is normal. Uterus and adnexa: No significant abnormality is seen. Thank you for allowing us to participate in the care of this patient. Glenn Agarwal M.D. Electronic Signature 01/30/2020 01:26pm [facility] NAME: SHAUN KENT Radiology Department PHYS: Sterling Boston MD [address] : 1990 AGE: 29 SEX: [place], [place] [address] LOC: JonhOCTAVIO PHONE #: [phone] EXAM DATE: 01/30/2020 STATUS: REG ER FAX #: [phone] RAD NO: Page 1 Signed Report (CONTINUED) Patient Name: SHAUN KENT Unit No: [id number] EXAMS: CPT CODE: [id number] FET BIO PH [place] W/O NST [address] (Continued) at 1326 Reported and signed by: Glenn Agarwal MD CC: Sterling Grant Technologist: Mallorie Sommer RDMS Probe: Trnscrbd D/ (1326) Bud Rowe Print D/T: S: 01/30/2020 (1326) [facility] NAME: SHAUN KENT Radiology Department PHYS: Sterling Boston MD [address] : 1990 AGE: 29 SEX: F [place], [place] [address] LOC: JonhOCTAVIO PHONE #: [phone] EXAM DATE: 01/30/2020 STATUS: REG ER FAX #: [phone] RAD NO: Page 2 Signed Report Patient Name: SHAUN KENT Unit No: [id number] EXAMS: CPT CODE: [id number] US FET BIO PH [place] W/O NST [address] (Continued) [facility] NAME: SHAUN KENT Radiology Department PHYS: Sterling Dean MD [address] : 1990 AGE: 29 SEX: F [place], [place] [address] LOC: JonhOCTAVIO PHONE #: [phone] EXAM DATE: 01/30/2020 STATUS: REG ER FAX #: [phone] RAD NO: Page 3 Signed Report- US [id number] 20:02:00[facility] 1990 Sex: F Patient Name: SHAUN KENT Unit No: [id number] EXAMS: CPT CODE: [id number] [place] L[place] [address] Limited obstetrical ultrasound dated 09/19/2019. HISTORY: 15 weeks . Abdominal pain. A limited transabdominal obstetrical ultrasound was performed and reveals the presence of a single intrauterine in variable position. cardiac activity is documented with a heart rate of 157 bpm. Theplacenta is posteriorly positioned and demonstrates grade 1 echotexture. There is no evidence of placenta previa or retroplacental hemorrhage. Amniotic fluid volume appears within normal limits. The cervix appears closed with a measured cervical length of 4 cm. The right ovary measures 3.3 x 2.3 x 3.0cm and maintains normal echotexture. The left ovary measures 4.9 x 3.0 x 4.1 cm and contains 2 cystswith greatest diameters of 2.5 and 2.1 cm. Ovarian blood flow is identified bilaterally using color ultrasound. No adnexal masses or pelvic fluid collections are identified. IMPRESSION: 1. Single living intrauterine in variable position. SL: 131 at 2001 Reported and signed by: Manjit Kohli MD CC: Nelly Aviles MD; Sterling Grant Technologist: Bethany Blanchard RDMS Probe: Trnscrbd D/ (2001) t.SDR.DMM Orig Print D/T: S: 09/19/2019 (2004) [facility] NAME: SHAUN KENT Radiology Department PHYS: Nelly Cameron MD [address] : 1990 AGE: 28 SEX: F [place] [address] LOC: UNK PHONE #: [phone] EXAM DATE: 09/19/2019 STATUS: DEP ER FAX #: [phone] RAD NO: Page 1 Signed Report Patient Name: SHAUN KENT Unit No: [id number] EXAMS: CPT CODE: [id number] [place] L[place] [address] <Continued> [facility] NAME: SHAUN KENT Radiology Department PHYS: Nelly Cameron MD [address] : 1990AGE: 28 SEX: F [place] [address] LOC: UNK PHONE #: [phone] EXAM DATE:09/19/2019 STATUS: DEP ER FAX #: [phone] RAD NO: Page 2 Signed Report- US [id number] 20:02:00 Patient Name: SHAUN KENT Unit No: [id number] EXAMS: CPT CODE: [id number] [place] LTD 314[address]Wozqvij obstetrical ultrasound dated 09/19/2019. HISTORY: 15 weeks . Abdominal pain. A limited transabdominal obstetrical ultrasound was performed and reveals the presence of a single intrauterine in variable position. cardiac activity is documented with a heart rate of 157 bpm.The placenta is posteriorly positioned and demonstrates grade 1 echotexture. There is no evidence ofplacenta previa or retroplacental hemorrhage. Amniotic fluid volume appears within normal limits. The cervix appears closed with a measured cervical length of 4 cm. The right ovary measures 3.3 x 2.3 x3.0 cm and maintains normal echotexture. The left ovary measures 4.9 x 3.0 x 4.1 cm and contains 2 cysts with greatest diameters of 2.5 and 2.1 cm. Ovarian blood flow is identified bilaterally using color ultrasound. No adnexal masses or pelvic fluid collections are identified. IMPRESSION: 1. Single living intrauterine in variable position. SL: 131 at 2001 Reported and signed by: Manjit Kohli MD CC: Nelly Aviles MD; Sterling Grant Technologist: Bethany Blanchard RDMS Probe: Trnscrbd D/ (2001) t.SURJITR.DMM Orig Print D/T: S: 09/19/2019 (2004) [facility] NAME: SHAUN KENT Rad iology Department PHYS: Nelly Cameron MD [address] : 1990 AGE: 28 SEX: F [place], [place] [address] LOC: F.ERS PHONE #: [phone] EXAM DATE: 09/19/2019 STATUS:REG ER FAX #: [phone] RAD NO: Page 1 Signed Report Patient Name: SHAUN KENT Unit No: [id number] EXAMS: CPT CODE: [id number] [place] LTD [address] (Continued) [facility] NAME: SHAUN KENT Radiology Department PHYS: MCNelly Lackey MD [address] : 1990 AGE: 28 SEX: F [place], [place] [address] LOC: RAE PHONE #: [phone] EXAM DATE: 09/19/2019 STATUS: REG ER FAX #: [phone] RAD NO: Page 2 Signed ReportCOMPREHENSIVE METABOLIC PANEL 2019-09-19 19:26:00 Test Item Value Reference Range Interpretation Comments SODIUM (test code = NA) 138 mEq/L 135-145 N POTASSIUM (test code = K) 3.1 mEq/L 3.5-5.0 L CHLORIDE (test code = CL) 103 mEq/L 100-115 N CARBON DIOXIDE (test code = CO2) 26 mEq/L 22-31 N ANION GAP (test code = GAP) 12.50 10-20 N GLUCOSE (test code = GLU) 100 mg/dL 65-110 N BLOOD UREA NITROGEN (test code = 8 mg/dL 7-18 N BUN) GLOMERULAR FILTRATION RATE (test 84 ml/min >60 N code = GFR) CREATININE (test code = CREAT) 0.8 mg/dL 0.5-1.0 N TOTAL PROTEIN (test code = PROT) 6.7 gm/dL 6.3-8.2 N ALBUMIN (test code = ALB) 3.2 gm/dL 3.4-4.8 L CALCIUM (test code = CA) 8.8 mg/dL 8.4-10.2 N BILIRUBIN TOTAL (test code = BILT) 0.2 mg/dL 0.2-1.0 N SGOT/AST (test code = AST) 10 units/L 15-37 L SGPT/ALT (test code = ALT) 10 units/L 12-78 L ALKALINE PHOSPHATASE TOTAL (test 66 units/L 46-116 N code = ALKP) [id number] 19:26:00 Test Item Value Reference Range Interpretation Comments LIPASE (test code = LIP) 100 units/L 73-393 N UA RFLX MICR CULT IF [id number] 19:25:00 Test Item Value Reference Range Interpretation Comments UA COLOR (test code = COLU) YELLOW YELLOW UA APPEARANCE (test code = CLEAR CLEAR APPU) UA GLUCOSE DIPSTICK (test code NEGATIVE NEGATIVE = DGLUU) UA BILIRUBIN DIPSTICK (test NEGATIVE NEGATIVE code = BILU) UA KETONE DIPSTICK (test code NEGATIVE NEGATIVE = KETU) UA SPECIFIC GRAVITY (test code >= 1.030 1.001-1.035 N = SGU) UA BLOOD DIPSTICK (test code = TRACE NEGATIVE A MIN) UA PH DIPSTICK (test code = 6.0 5-9 KAREEN) UA PROTEIN DIPSTICK (test code NEGATIVE NEGATIVE = PROU) UA UROBILINIOGEN DIPSTICK 0.2 EU/dL <=1.0 (test code = URO) UA NITRITE DIPSTICK (test code NEGATIVE NEGATIVE = LISSETH) UA LEUKOCYTE ESTERASE DIPSTICK NEG NEGATIVE (test code = LEUU) UA WBC (test code = WBCU) 0-2 #/hpf NONE SEEN UA RBC (test code = RBCU) 0-2 #/hpf NONE SEEN UA EPITHELIAL CELLS (test code FEW #/hpf NONE SEEN = EPIU) UA BACTERIA (test code = BACU) NEGATIVE #/hpf NONE SEEN UA MUCUS (test code = MUCU) 1+ NONE SEEN Indication for culture: Suprapubic PainCBC W/AUTO [id number] 19:09:00 Test Item Value Reference Range Interpretation Comments WHITE BLOOD CELL (test code = WBC) 9.6 K/mm3 6.6-12.1 N RED BLOOD CELL (test code = RBC) 4.34 M/mm3 3.45-5.01 N HEMOGLOBIN (test code = HGB) 12.6 g/dL 10.7-13.9 N HEMATOCRIT (test code = HCT) 37.8 % 32.1-42.1 N MEAN CELL VOLUME (test code = MCV) 87 fL 84.1-94.8 N MEAN CELL HGB (test code = MCH) 29.0 pg 27-35 N MEAN CELL HGB CONCETRATION (test 33.3 gm/dL 32.2-34.1 N code = MCHC) RED CELL DISTRIBUTION WIDTH (test 14.5 % 12.4-16.5 N code = RDW) PLATELET COUNT (test code = PLT) 200 K/mm3 133-385 N MEAN PLATELET VOLUME (test code = 11.1 fl 9.1-12.7 N MPV) NEUTROPHIL % (test code = NT%) 65.0 % 56.5-79.4 N LYMPHOCYTE % (test code = LY%) 26.5 % 14.3-34.3 N MONOCYTE % (test code = MO%) 6.7 % 5.1-10.4 N EOSINOPHIL % (test code = EO%) 1.0 % 0.1-3.0 N BASOPHIL % (test code = BA%) 0.4 % 0.1-1.0 N NEUTROPHIL # (test code = NT#) 6.3 K/mm3 LYMPHOCYTE # (test code = LY#) 2.6 K/mm3 MONOCYTE # (test code = MO#) 0.7 K/mm3 EOSINOPHIL # (test code = EO#) 0.10 K/mm3 BASOPHIL # (test code = BA#) 0.0 K/mm3 RBC MORPHOLOGY REQUIRED (test code NORMAL NORMAL = RBCM) PLATELET MORPHOLOGY REQUIRED (test NORMAL NORMAL code = PLTMR) - DUP AB/PEL/SC/[id number] 11:14:00 [facility] 1990 Sex: F Patient Name: SHAUN KENT Unit No: [id number] EXAMS: CPT CODE: [id number] [facility] AB/PEL/SC/LTD 40030 EXAMINATION: Pelvic ultrasound 07/17/2019. CLINICAL HISTORY: Spotting, , IUI 06/23/2019. COMPARISON: Pelvic ultrasound 11/03/2018. FINDINGS: Transabdominal and transvaginal pelvic ultrasound was performed using grayscale, color doppler, and spectral analysis. The uterus measures 10.7 x 6.2 x 6.9 cm.The endometrium measures 2.2 cm in AP diameter. It is slightly heterogeneous in appearance. There isno well-defined gestational sac. The previously described posterior fibroid is not evident on the current examination. However, the posterior myometrium is heterogeneous and prominent diffusely. The right ovary measures 36 x 16 x 37 mm and is within normal limits in appearance. The previously seen hemorrhagic cyst in the right ovary is no longer evident. The left ovary measures 77 x 42 x 43 mm. It contains multiple cysts of varying size, the largest of which measure 33 x 20 x 27 mm and 34 x 32 x 33 mm. Both ovaries demonstrate flow on Doppler evaluation, with arterial and venous waveforms evident on spectral analysis. There is a small amount of nonspecific free fluid in the pelvis. There is no evidence of extraovarian adnexal mass. IMPRESSION: 1. No evidence of intrauterine or extrauterine gestati on. Correlation with beta-hCG levels is recommended with follow-up ultrasound as clinically indicated. 2. Prominent endometrium. This can be reevaluated on follow-up examinations. 3. The previously described posterior fibroid is not evident on the current examination. The posterior myometrium is diffusely prominent and heterogeneous. Considerations include contraction and adenomyosis. 4. Multiple left ovarian cysts. Both ovaries demonstrate flow on Doppler evaluation. This does not exclude torsionif it is of high clinical concern. at 1114 Reported and signed by: Brittany Esparza MD [facility] NAME: SHAUN KENT MRadiology Department PHYS: King Diana [address] : 1990 AGE: 28 SEX: [place] [address] LOC: UNK PHONE #: [phone] EXAM DATE: 07/17/2019 STATUS: DEP ER FAX #: [phone] RAD NO: Page 1 Signed Report (CONTINUED) Patient Name: HOUSTON KENT Unit No: [id number] EXAMS: CPT CODE: [id number] D[facility] AB/PEL/SC/LTD 89536 <Continued> CC: King Carver MD; Sterling Grant Technologist: Charissa Subramanian RDMS Probe: Trnscrbd D/ (1114) t.CH[place].HECTORC Orig Print D/T: S: 07/17/2019 (1117) [facility] NAME: SHAUN KENT Radiology Department PHYS: King Diana [address] : 1990 AGE: 28 SEX: F [place], [place] [address] LOC: UNK PHONE #: [phone] EXAM DATE: 07/17/2019 STATUS: DEP ER FAX #: [phone] RAD NO: Page 2 Signed Report Patient Name: SHAUN KENT U nit No: [id number] EXAMS: CPT CODE: [id number] D[facility] AB/PEL/SC/LTD 52868 <Continued> [facility] NAME: SHAUN KENT Radiology Department PHYS: King Diana [address] : 1990 AGE: 28 SEX: F [place], [place] [address] LOC: UNK PHONE #: [phone] EXAM DATE: 07/17/2019 STATUS: DEP ER FAX #: [phone] RAD NO: Page 3 Signed Report- DUP AB/PEL/SC/[id number] 11:14:00 Patient Name: SHAUN KENT Unit No: [id number] EXAMS: CPT CODE: [id number] DUP AB/PEL/SC/LTD 95839 EXAMINATION: Pelvic ultrasound 07/17/2019. CLINICAL HISTORY: Spotting, , IUI 06/23/2019. COMPARISON: Pelvic ultrasound 11/03/2018. FINDINGS: Transabdominal and transvaginal pelvic ultrasound was performed using grayscale, color doppler, and spectral analysis. The uterus measures 10.7 x 6.2 x 6.9 cm. The endometrium measures 2.2 cm in AP diameter. It is slightly heterogeneous in appearance. Thereis no well-defined gestational sac. The previously described posterior fibroid is not evident on thecurrent examination. However, the posterior myometrium is heterogeneous and prominent diffusely. Theright ovary measures 36 x 16 x 37 mm and is within normal limits in appearance. The previously seen hemorrhagic cyst in the right ovary is no longer evident. The left ovary measures 77 x 42 x 43 mm. Itcontains multiple cysts of varying size, the largest of which measure 33 x 20 x 27 mm and 34 x 32 x 33 mm. Both ovaries demonstrate flow on Doppler evaluation, with arterial and venous waveforms evident on spectral analysis. There is a small amount of nonspecific free fluid in the pelvis. There is no evidence of extraovarian adnexal mass. IMPRESSION: 1. No evidence of intrauterine or extrauterine gestation. Correlation with beta-hCG levels is recommended with follow-up ultrasound as clinically indicated. 2. Prominent endometrium. This can be reevaluated on follow-up examinations. 3. The previously described posterior fibroid is not evident on the current examination. The posterior myometrium is diffusely prominent and heterogeneous. Considerations include contraction and adenomyosis. 4. Multipleleft ovarian cysts. Both ovaries demonstrate flow on Doppler evaluation. This does not exclude torsion if it is of high clinical concern. [id number] Reported and signed by: Brittany Esparza MD [facility] NAME: HOUSTON KENT Radiology Department PHYS: King Diana [address] : 1990 AGE: 28 SEX: F [place] [address] LOC: RAE PHONE #: [phone] EXAM DATE: 07/17/2019STATUS: CRISTIANE FAX #: [phone] RAD NO: Page 1 Signed Report (CONTINUED) Patient Name: SHAUN KENT Unit No: [id number] EXAMS: CPT CODE: [id number] DUP AB/PEL/SC/LTD 90024 (Continued) CC: King Carver MD; Sterling Grant Technologist: Charissa Subramanian RDMS Probe: Trnscrbd D/ (1114) tAUBRIE Orig Print D/T: S: 07/17/2019 (1117) [facility] NAME: YOLISHAUN Radiology Department PHYS: King Diana [address] : 1990 AGE: 28SEX: F [place] [address] LOC: RAE PHONE #: [phone] EXAM DATE: 07/17/2019 STATUS: REG ER FAX #: [phone] RAD NO: Page 2 Signed Report Patient Name: SHAUN KENT Unit No: [id number] EXAMS: CPT CODE: [id number] DUP AB/PEL/SC/LTD 34157 (Continued) [facility] NAME: SHAUN KENT Radiology Department PHYS: King Diana [address] : 1990 AGE: 28 SEX: [place] [address] LOC: RAE PHONE #: [phone] EXAM DATE: 07/17/2019 STATUS: REG ER FAX #: [phone] RAD NO: Page 3 Signed Report- US PELVIS COMPLETE 2019-07-17 11:14:00 [facility] 1990 Sex: F Patient Name: SHAUN KENT Unit No: [id number] EXAMS: CPT CODE: [id number] US PELVIS COMPLETE [address]270 EXAMINATION: Pelvic ultrasound 07/17/2019. CLINICAL HISTORY: Spotting, , IUI 06/23/2019. COMPARISON: Pelvic ultrasound 11/03/2018. FINDINGS: Transabdominal and transvaginal pelvic ultrasound was performed using grayscale, color doppler, and spectral analysis. The uterus measures 10.7 x 6.2 x 6.9 cm. The endometrium measures 2.2 cm in AP diameter. It is slightly heterogeneous in appearance. There is no well-defined gestational sac. The previously described posterior fibroid is not evident on the current examination. However, the posterior myometrium is heterogeneous and prominent diffusely. The right ovary measures 36 x 16 x 37 mm and is within normal limits in appearance. The previously seen hemorrhagic cyst in the right ovary is no longer evident. The left ovary measures 77 x 42 x 43 mm. It contains multiple cysts of varying size, the largest of which measure 33 x 20 x 27 mm and 34 x 32 x 33mm. Both ovaries demonstrate flow on Doppler evaluation, with arterial and venous waveforms evident on spectral analysis. There is a small amount of nonspecific free fluid in the pelvis. There is no evidence of extraovarian adnexal mass. IMPRESSION: 1. No evidence of intrauterine or extrauterine gestat ion. Correlation with beta-hCG levels is recommended with follow-up ultrasound as clinically indicated. 2. Prominent endometrium. This can be reevaluated on follow-up examinations. 3. The previously described posterior fibroid is not evident on the current examination. The posterior myometrium is diffusely prominent and heterogeneous. Considerations include contraction and adenomyosis. 4. Multiple left ovarian cysts. Both ovaries demonstrate flow on Doppler evaluation. This does not exclude torsion if it is of high clinical concern. at 1114 Reported and signed by: Brittany Esparza MD [facility] NAME: SHAUN KENT Radiology Department PHYS: King Diana [address] : 1990 AGE: 28 SEX: F [place], [place] [address] LOC: UNK PHONE #: [phone] EXAM DATE: 07/17/2019 STATUS: DEP ER FAX #: [phone] RAD NO: Page 1 Signed Report (CONTINUED) Patient Name: SHAUN KENT [facility] No: [id number] EXAMS: CPT CODE: [id number] US PELVIS COMPLETE 06253 <Continued> CC: King Carver MD; Sterling Grant Technologist: Charissa Subramanian RDMS Probe: Trnscrbd D/ (1114) t.SURJITR.WSC Orig Print D/T: S: 07/17/2019 (1117) [facility] NAME: SHAUN KENT Radiology Department PHYS: King Diana [address] : 1990 AGE:28 SEX: F [place], [place] [address] LOC: UNK PHONE #: [phone] EXAM DATE: 07/17/2019 STATUS: DEP ER FAX #: [phone] RAD NO: Page 2 Signed Report Patient Name: SHAUN KENT Unit No: [id number] EXAMS: CPT CODE: [id number] US PELVIS COMPLETE [address] <Continued> [facility] NAME: SHAUN KENT Radiology Department PHYS: King Diana [address] : 1990 AGE: 28 SEX: F [place], [place] [address] LOC: UNK PHONE #: [phone] EXAM DATE: 07/17/2019 STATUS: DEP ER FAX #: [phone] RAD NO: Page 3 Signed Report- US PELVIS [id number] 11:14:00 Patient Name: SHAUN KENT Unit No: [id number] EXAMS: CPT CODE: [id number] US PELVIS COMPLETE [address] EXAMINATION: Pelvic ultrasound 07/17/2019. CLINICAL HISTORY: Spotting, , IUI 06/23/2019. COMPARISON: Pelvic ultrasound 11/03/2018. FINDINGS: Transabdominal and transvaginal pelvic ultrasound was performed using grayscale, color doppler, and spectral analysis. The uterus measures 10.7 x 6.2 x 6.9cm. The endometrium measures 2.2 cm in AP diameter. It is slightly heterogeneous in appearance. There is no well-defined gestational sac. The previously described posterior fibroid is not evident on the current examination. However, the posterior myometrium is heterogeneous and prominent diffusely. The right ovary measures 36 x 16 x 37 mm and is within normal limits in appearance. The previously seenhemorrhagic cyst in the right ovary is no longer evident. The left ovary measures 77 x 42 x 43 mm. It contains multiple cysts of varying size, the largest of which measure 33 x 20 x 27 mm and 34 x 32 x33 mm. Both ovaries demonstrate flow on Doppler evaluation, with arterial and venous waveforms evident on spectral analysis. There is a small amount of nonspecific free fluid in the pelvis. There is no evidence of extraovarian adnexal mass. IMPRESSION: 1. No evidence of intrauterine or extrauterine ge station. Correlation with beta-hCG levels is recommended with follow-up ultrasound as clinically indicated. 2. Prominent endometrium. This can be reevaluated on follow-up examinations. 3. The previously described posterior fibroid is not evident on the current examination. The posterior myometrium is d iffusely prominent and heterogeneous. Considerations include contraction and adenomyosis. 4. Multiple left ovarian cysts. Both ovaries demonstrate flow on Doppler evaluation. This does not exclude torsion if it is of high clinical concern. at 1114 Reported and signed by: Brittany Esparza MD [facility] NAME: SHAUN KENT Radiology Department PHYS: [address] : 1990 AGE: 28 SEX: F [place] [address] LOC: NatanaelDANIEL PHONE #: [phone] EXAM DATE: 07/17/2019 STATUS: REG ER FAX #: [phone] RAD NO: Page 1 Signed Report (CONTINUED) Patient Name: MARIE KENT Unit No: [id number] EXAMS: CPT CODE: [id number] US PELVIS COMPLETE 00471 (Continued) CC: King Carver MD; Sterling Grant Technologist: Charissa Subramanian RDMS Probe: Trnscrbd D/ (1114) Amber Orig Print D/T: S: 07/17/2019 (1117) [facility] NAME: SHAUN PEREZ Radiology Department PHYS: [address] : 1990 AGE: 28 SEX: F [place] [address] LOC: JonhERS PHONE #: [phone] EXAM DATE: 07/17/2019 STATUS: REG ER FAX #: [phone] RAD NO: Page 2 Signed Report Patient Name: SHAUN KENT Unit No: [id number] EXAMS: CPT CODE: [id number] US PELVIS COMPLETE 20040 (Continued) [facility] NAME: SHAUN KENT Radiology Department PHYS: [address] : 1990 AGE: 28 SEX: F [place], [place] [address] LOC: JonhERS PHONE #: [phone] EXAM DATE: 07/17/2019 STATUS: REG ER FAX #: [phone] RAD NO: Page 3 Signed Report- US TRANSVAGINAL W/[id number] 11:14:00 [facility] 1990 Sex: F Patient Name: SHAUN KENT Unit No: [id number] EXAMS: CPT CODE: [id number] US TRANSVAGINAL W/PELVIS 59220 EXAMINATION: Pelvic ultrasound 07/17/2019. CLINICAL HISTORY: Spotting, , IUI 06/23/2019. COMPARISON: Pelvic ultrasound 11/03/2018. FINDINGS: Transabdominal and transvaginal pelvic ultrasound was performed using grayscale, color doppler, and spectral analysis. The uterus measures 10.7 x 6.2 x 6.9 cm. The endometrium measures 2.2 cm in AP diameter. It is slightly heterogeneous in appearance. There is no well-defined gestational sac. The previously described posterior fibroid is not evident onthe current examination. However, the posterior myometrium is heterogeneous and prominent diffusely.The right ovary measures 36 x 16 x 37 mm and is within normal limits in appearance. The previously seen hemorrhagic cyst in the right ovary is no longer evident. The left ovary measures 77 x 42 x 43 mm. It contains multiple cysts of varying size, the largest of which measure 33 x 20 x 27 mm and 34 x 32 x 33 mm. Both ovaries demonstrate flow on Doppler evaluation, with arterial and venous waveforms evident on spectral analysis. There is a small amount of nonspecific free fluid in the pelvis. There is no evidence of extraovarian adnexal mass. IMPRESSION: 1. No evidence of intrauterine or extrauterine gestation. Correlation with beta-hCG levels is recommended with follow-up ultrasound as clinically indicated. 2. Prominent endometrium. This can be reevaluated on follow-up examinations. 3. The previously described posterior fibroid is not evident on the current examination. The posterior myometrium is diffusely prominent and heterogeneous. Considerations include contraction and adenomyosis. 4. Multiple left ovarian cysts. Both ovaries demonstrate flow on Doppler evaluation. This does not exclude torsion if it is of high clinical concern. at 1114 Reported and signed by: Brittany Esparza MD [facility] NAME: MARIE KENT Radiology Department PHYS: [address] : 1990 AGE: 28SEX: F [place], [place] [address] LOC: UNK PHONE #: [phone] EXAM DATE: 07/17/2019 STATUS: DEP ER FAX #: [phone] RAD NO: Page 1 Signed Report (CONTINUED) Patient Name: MARIE KENT Unit No: [id number] EXAMS: CPT CODE: [id number] US TRANSVAGINAL W/PELVIS 77157 <Continued> CC: King Carver MD; Sterling Grant Technologist: Charissa Subramanian RDMS Probe: [id number] Trnscrbd D/ (1114) t.[facility]URJITR.[facility] Orig Print D/T: S: 07/17/2019 (1117) [facility] NAME: SHAUN KENT Radiology Department PHYS: King Lentz [address] : 1990 AGE: 28 SEX: F [place], [place] [address] LOC: UNK PHONE #: [phone] EXAM DATE: 07/17/2019 STATUS: DEP ER FAX #: [phone] RAD NO: Page 2 Signed Report PatientName: SHAUN KENT Unit No: [id number] EXAMS: CPT CODE: [id number] US TRANSVAGINAL W/PELVIS 80929<Continued> [facility] NAME: SHAUN KENT Radiology Department PHYS: [address] : 1990 AGE: 28 SEX: F [place], [place] [address] LOC: UNK PHONE #: [phone] EXAM DATE: 07/17/2019 STATUS: DEP ER FAX #: [phone] NO: Page 3 Signed Report- US TRANSVAGINAL W/[id number] 11:14:00 Patient Name: SHAUN KENT Unit No: [id number] EXAMS: CPT CODE: [id number] US TRANSVAGINAL W/PELVIS 80547 EXAMINATION: Pelvic ultrasound 07/17/2019. CLINICAL HISTORY: Spotting, , IUI 06/23/2019. COMPARISON: Pelvic ultrasound 11/03/2018. FINDINGS: Transabdominal and transvaginal pelvic ultrasound was performed using grayscale, color doppler, and spectral analysis. The uterus measures 10.7 x 6.2 x 6.9 cm. The endometrium measures 2.2 cm in AP diameter. It is slightly heterogeneous in appearance. There is no well-defined gestational sac. The previously described posterior fibroid is not evident on the current examination. However, the posterior myometrium is heterogeneous and prominent diffusely. The right ovary measures 36 x 16 x 37 mm and is within normal limits in appearance. The previously seen hemorrhagic cyst in the right ovary is no longer evident. The left ovary measures 77 x 42 x 43 mm. It contains multiple cysts of varying size, the largest of which measure 33 x 20 x 27 mm and 34x 32 x 33 mm. Both ovaries demonstrate flow on Doppler evaluation, with arterial and venous waveforms evident on spectral analysis. There is a small amount of nonspecific free fluid in the pelvis. There is no evidence of extraovarian adnexal mass. IMPRESSION: 1. No evidence of intrauterine or extrauterine gestation. Correlation with beta-hCG levels is recommended with follow-up ultrasound as clinically indicated. 2. Prominent endometrium. This can be reevaluated on follow-up examinations. 3. The previously described posterior fibroid is not evident on the current examination. The posterior myometrium is diffusely prominent and heterogeneous. Considerations include contraction and adenomyosis. 4. Multiple left ovarian cysts. Both ovaries demonstrate flow on Doppler evaluation. This does not exclude torsion if it is of high clinical concern. at 1114 Reported and signed by: Brittany Esparza MD [facility] NAME: SHAUN KENT Radiology Department PHYS: [address] : 1990 AGE: 28 SEX: F [place], [place] [address] LOC: RAE PHONE #: [phone] EXAM DATE: 07/17/2019 STATUS: REG ER FAX #: [phone] RAD NO: Page 1 Signed Report (CONTINUED) Patient Name: ELOY DoeSHAUN Unit No: [id number] EXAMS: CPT CODE: [id number] US TRANSVAGINAL W/PELVIS 39946 (Continued) CC: King Carver MD; Sterling Grant Technologist: Charissa Subramanian RDMS Probe: [id number] Trnscrbd D/ (1114) tSTORMCR[facility] Orig Print D/T: S: 07/17/2019 (1117) [facility] NAME: SHAUN KENT Radiology Department PHYS: King L[address]z [address]OB: 1990 AGE: 28 SEX: F [place], [place] [address] LOC: JonhERS PHONE #: [phone] EXAM DATE: 07/17/2019 STATUS: REG ER FAX #: [phone] RAD NO: Page 2 Signed Report Patient Name: SHAUN KENT Unit No: [id number] EXAMS: CPT CODE: [id number] US TRANSVAGINAL W/PELVIS 03508 (Continued) [facility] NAME: SHAUN KENT Radiology Department PHYS: BRIANNE AngelBailonKing lambert [address] : 1990 AGE: 28 SEX: F [place], [place] [address] LOC: RAE PHONE #: [phone] EXAM DATE: 07/17/2019 STATUS: REG ER FAX #: [phone] RAD NO: Page 3 Signed ReportHCG [id number] 10:29:00 Test Item Value Reference Range Interpretation Comments HCG SERUM (test 692 INTERPRETATI ON:VALUES BETWEEN code = HCG) 15-20 milliInte rnational units/mL NEED T O BERETESTED WITHIN 48 HOURS . All units for these ranges ar e in milliInternatio nalunits/mL0-1 WK AFTER CONCEP TION 0-50 1-2 WKS AFTER ERICK PTION 40-3002-3 WKS AFTER ERICK PTION 100-1,0003-4 WK S AFTER CONCEPTION 500- 6,0001-2 MONTHS AFTER CONCEPTIO N 5,000-200,0002- 3 MONTHS AFTER CONCEPTION 10,0 00-100,0002ND TRIMESTER 3,000 -50,0003RD TRIMESTER 1,000 -50,000 SPECIMENS WITH AN HCG LEVEL FROM 0-6 milliInternatio nalunits/mL SHOULD BE CONSI DERED NEGATIVE COMPREHENSIVE METABOLIC [id number] 10:07:00 Test Item Value Reference Range Interpretation Comments SODIUM (test code = NA) 139 mEq/L 135-145 N POTASSIUM (test code = K) 3.7 mEq/L 3.5-5.0 N CHLORIDE (test code = CL) 103 mEq/L 100-115 N CARBON DIOXIDE (test code = CO2) 27 mEq/L 22-31 N ANION GAP (test code = GAP) 13.10 10-20 N GLUCOSE (test code = GLU) 96 mg/dL 65-110 N BLOOD UREA NITROGEN (test code = 11 mg/dL 7-18 N BUN) GLOMERULAR FILTRATION RATE (test 84 ml/min >60 N code = GFR) CREATININE (test code = CREAT) 0.8 mg/dL 0.5-1.0 N TOTAL PROTEIN (test code = PROT) 7.1 gm/dL 6.3-8.2 N ALBUMIN (test code = ALB) 4.0 gm/dL 3.4-4.8 N CALCIUM (test code = CA) 8.6 mg/dL 8.4-10.2 N BILIRUBIN TOTAL (test code = BILT) 0.4 mg/dL 0.2-1.0 N SGOT/AST (test code = AST) 13 units/L 15-37 L SGPT/ALT (test code = ALT) 22 units/L 12-78 N ALKALINE PHOSPHATASE TOTAL (test 76 units/L 46-116 N code = ALKP) CBC W/AUTO [id number] 09:38:00 Test Item Value Reference Range Interpretation Comments WHITE BLOOD CELL (test code = WBC) 8.4 K/mm3 6.6-12.1 N RED BLOOD CELL (test code = RBC) 4.82 M/mm3 3.45-5.01 N HEMOGLOBIN (test code = HGB) 13.6 g/dL 10.7-13.9 N HEMATOCRIT (test code = HCT) 41.6 % 32.1-42.1 N MEAN CELL VOLUME (test code = MCV) 86 fL 84.1-94.8 N MEAN CELL HGB (test code = MCH) 28.2 pg 27-35 N MEAN CELL HGB CONCETRATION (test 32.7 gm/dL 32.2-34.1 N code = MCHC) RED CELL DISTRIBUTION WIDTH (test 13.6 % 12.4-16.5 N code = RDW) PLATELET COUNT (test code = PLT) 228 K/mm3 133-385 N MEAN PLATELET VOLUME (test code = 10.7 fl 9.1-12.7 N MPV) NEUTROPHIL % (test code = NT%) 65.7 % 56.5-79.4 N LYMPHOCYTE % (test code = LY%) 27.4 % 14.3-34.3 N MONOCYTE % (test code = MO%) 5.4 % 5.1-10.4 N EOSINOPHIL % (test code = EO%) 0.6 % 0.1-3.0 N BASOPHIL % (test code = BA%) 0.5 % 0.1-1.0 N NEUTROPHIL # (test code = NT#) 5.5 K/mm3 LYMPHOCYTE # (test code = LY#) 2.3 K/mm3 MONOCYTE # (test code = MO#) 0.5 K/mm3 EOSINOPHIL # (test code = EO#) 0.05 K/mm3 BASOPHIL # (test code = BA#) 0.0 K/mm3 RBC MORPHOLOGY REQUIRED (test code NORMAL NORMAL = RBCM) PLATELET MORPHOLOGY REQUIRED (test NORMAL NORMAL code = PLTMR) - US PELVIS [id number] 18:11:00 [facility] 1990 Sex: F Patient Name: SHAUN KENT Unit No: [id number] EXAMS: CPT CODE: [id number] US PELVIS COMPLETE 67556 Pelvic US performed November 03, 2018 1752 hours. COMPARISON: None. CLINICAL HISTORY: Right lower quadrantpain. DISCUSSION: Real-time kessler scale sonography performed of the pelvis via the transabdominal andtransvaginal approach. The uterus measures 89 x 39 x 54 mm and contains no posterior intramural fibroid measuring 18 x 12 x 15 mm. The endometrium is homogenous and measures 9 mm in thickness. The leftovary is sonographically normal in appearance measuring 36 x 26 x 26 mm. The right ovary measures 77x 58 x 59 mm. It contains a complex cyst with lacelike echoes measuring 58 x 47 x 53 mm. Findings are compatible with hemorrhagic cyst. Subcentimeter follicles are seen bilaterally. Normal flow seen inboth ovaries. No significant free fluid in seen in the cul de sac. IMPRESSION: 1. Probable hemorrhagic cyst in the right ovary measuring 58 x 47 x 53 mm. Short-term follow-up ultrasound to ensure resolution is advised.. at 1811 Reported and signed by: Jacki Gallagher MD CC: Sterling Grant Technologist: Maria Teresa Rodriguez RDMS Probe: Trnscrbd D/ (1810) t.SDR.NMG Orig Print D/T: S: 11/03/2018 (1814) [facility] NAME: YOLISHAUN Morales Radiology Department PHYS: Sterling Boston MD [address] : 1990 AGE: 27 SEX: F [place] [address] LOC: UNSnapshot Interactive PHONE #: [phone] EXAM DATE: 11/03/2018 STATUS: DEP CLI FAX #: [phone] RAD NO: Page 1 Signed Report Patient Name: HOUSTON KENT Unit No: [id number] EXAMS: CPT CODE: [id number] US PELVIS COMPLETE 63045 <Continued> [facility] NAME: DEON KENTHER Morales Radiology Department PHYS: Sterling Boston MD [address] : 1990 AGE: 27 SEX: F [place], [place] [address] LOC: UNK PHONE #: [phone] EXAM DATE: 11/03/2018 STATUS: DEP CLI FAX #: [phone] RAD NO: Page 2 Signed Report- US PELVIS [id number] 18:11:00 Patient Name: SHAUN KENT Unit No: [id number] EXAMS: CPT CODE: [id number] US PELVIS COMPLETE 72399 Pelvic US performed November 03, 2018 1752 [...] 26 x 26 mm. The right ovary dtisdxzr55 x 58 x 59 mm. It contains a complex cyst with lacelike echoes measuring 58 x 47 x 53 mm. Findingsare compatible with hemorrhagic cyst. Subcentimeter follicles are seen bilaterally. Normal flow seen in both ovaries. No significant free fluid in seen in the cul de sac. IMPRESSION: 1. Probable hemorrhagic cyst in the right ovary measuring 58 x 47 x 53 mm. Short-term follow-up ultrasound to ensure resolution is advised.. at 181 Reported and signed by: Jacki Gallagher MD CC: Sterling Grant Technologist: Maria Teresa Rodriguez RDMS Probe: Trnscrbd D/ (1810) t.SDR.NMG Orig Print D/T: S: 11/03/2018 (1814) [facility] NAME: SHAUN KENT Radiology Department PHYS: Sterling Boston MD [address] : 1990 AGE: 27 SEX: F [place] [address] LOC: JonhRAD PHONE #: [phone] EXAM DATE: 11/03/2018 STATUS: REG CLI FAX #: [phone] RAD NO: Page 1 Signed Report Patient Name: SHAUN KENT Unit No: [id number] EXAMS: CPT CODE: [id number] US PELVIS COMPLETE 55030 (Continued) [facility] NAME: SHAUN KENT Radiology Department PHYS: Sterling Boston MD [address] : 1990 AGE: 27 SEX: F [place] [address] LOC: Natanael.RAD PHONE #: [phone] EXAM DATE: 11/03/2018 STATUS: REG CLI FAX #: [phone] RAD NO: Page 2 Signed Report- US TRANSVAGINAL W/PELVIS 2018-11-03 18:11:00 [facility] 1990 Sex: F Patient Name: SHAUN KENT Unit No: [id number] EXAMS: CPT CODE: [id number] US TRANSVAGINAL W/PELVIS 97808 Pelvic US performed November 03, 2018 1752 hours. COMPARISON: None. CLINICAL HISTORY: Right lower quadrant pain. DISCUSSION: Real-time kessler scale sonography performed of the pelvis via the transabdominal and transvaginal approach. The uterus measures 89 x 39 x 54 mm and contains no posterior intramuralfibroid measuring 18 x 12 x 15 mm. The endometrium is homogenous and measures 9 mm in thickness. Theleft ovary is sonographically normal in appearance measuring [...] and signed by: Jacki Gallagher MD CC: Sterling Grant Technologist: Maria Teresa Rodriguez RDMS Probe: [id number] D/ (1810) [employer] Orig Print D/T: S: 11/03/2018 (1815) [facility] NAME: SHAUN KENT Radiology Department PHYS: Sterling Boston MD [address] : 1990 AGE: 27 SEX: F [place], [place] [address] LOC: UNK PHONE #: [phone] EXAM DATE: 11/03/2018 STATUS: DEP CLI FAX #: [phone] RAD NO: Page 1 Signed Report Patient Name: SHAUN KENT Unit No: [id number] EXAMS: CPT CODE: [id number] US TRANSVAGINAL W/PELVIS 62166 <Continued> [facility] NAME: SHAUN KENT Radiology Department PHYS: Sterling Dean MD [address] : 1990 AGE: 27 SEX: F [place], [place] [address] LOC: UNK PHONE #: [phone] EXAM DATE: 11/03/2018 STATUS: DEP CLI FAX #: [phone] RAD NO: Page 2 Signed Report- US TRANSVAGINAL [id number] 18:11:00 Patient Name: SHAUN KENT Unit No: [id number] EXAMS: CPT CODE: [id number] US TRANSVAGINAL W/PELVIS 24628 Pelvic US performed November 03, 2018 1752 [...] and signed by: Jacki Gallagher MD CC: Sterling Grant Technologist: Maria Teresa Rodriguez RDMS Probe: [id number] Trnscrbd D/ (1810) RochelleNMG Orig Print D/T: S: 11/03/2018 (1814) [facility] NAME: YOLISHAUN Radiology Department PHYS: Sterling Boston MD [address] : 1990 AGE: 27 SEX: F [place] [address] LOC: JonhRAD PHONE #: [phone] EXAM DATE: 11/03/2018 STATUS: REG CLI FAX #: [phone] RAD NO: Page 1 Signed Report Patient Name: SHAUN KENT Unit No: [id number] EXAMS: CPT CODE: [id number] US TRANSVAGINAL W/PELVIS 59511 (Continued) [facility] NAME: SHAUN KENT Radiology Department PHYS: Sterling Boston MD [address] : 1990 AGE: 27 SEX: F [place] [address] LOC: JonhRAD PHONE #: [phone] EXAM DATE: 11/03/2018 STATUS: REG CLI FAX #: [phone] RAD NO: Page 2 Signed ReportPLACENTA THIRD TRIMESTER 2017 14:54:00 RUN DATE: 12/04/17 [facility] PAGE 1 RUN TIME: 1528 Specimen Inquiry RUN USER: INTERFACE --[facility]ENT [facility] [id number] LOC: FLACA U #: [id number] [facility]SX[facility] RE12[facility]17REG DR: Sterling Grant MD : [birth year] BED: A DIS: STATUS: ADM IN TLOC: SPEC #: [id number] RECD: 12/03/17 STATUS: [facility] #: [id number] LOREN: 12/03/17- SUBM DR: Sterling Grant MD ENTERED: 12/03/17 SP TYPE: PLACIII OTHR DR: ORDERED: LEVEL V SURGICA CODES: [id number] - PLACENTA, NOS PROCEDURES: LEVELV SURGICA (Incomplete) TISSUES: PLACENTA, NOS - PLACENTA CLINICAL HISTORY 26 year old, 38.4 weeks, G1T1P1, section, chorioamnionitis (kr) FINAL DIAGNOSIS Placenta, umbilical cord and membranes: - decidual vasculopathy - placenta is small for gestational age (447 gm, expected weight between 499 and 519 gm) - chorioamnionitis is not identified in the sections taken - trivascular, 19 cmcord inserts 6 cm from the margin Tissue code 1 CPT code(s): 66920 mhf/kr 12/04/17 @ 3143 GROSS DESCRIPTION The specimen was received in a container labeled with the patient's name, unit number, and designated "placenta". The following attributes are observed: Cord insertion: 6 cm from margin Cord length: 19 cm Number of vessels: 3 Cord color: Blue-tam Other cord findings: None surface findings:Steel blue, wrinkled, glistening Vasculature: Displays unremarkable blood vasculature Membranes rupture site: 7 cm to margin Membrane color: Tam Other membrane findings: Thickened and opaque The trimmed placental weight: 447 gm Disk measurement: 20 x 18 x 3.3 cm in greatest dimension Accessory lobes:None CONTINUED ON NEXT PAGE RUN DATE: 12/04/17 [facility] PAGE 2 RUN TIME: 1528 Specimen Inquiry RUN USER: INTERFACE SPEC #: [id number] PATIENT: SHAUN KENT #[id number] (Continued) GROSS DESCRIPTION (Continued) Maternal surface: Lobulated and intact Parenchyma: Red, beefy, and spongy Parenchyma lesions: None Cassettes: A through D angelica/d 12/03/17 @ 1122 MICROSCOPIC DESCRIPTION There is decidual vasculopathy. Chorioamnionitis is not identified in the sections taken. The placenta is small for gestational age. [facility]/kr 12/04/17 @ 1451 Signed Sherwin TenorioGaudencio 12/04/17 1454 -- END OF REPORT - US PREG AFTER [id number] 12:13:00 [facility] : 1990 Sex: F Patient Name: SHAUN KENT Andrew Unit No: [id number] EXAMS: CPT CODE: [id number] US PREG AFTER [address] [facility] [address] [place], [place] [address] OBSTETRICAL ULTRASOUND REPORT Pat. Name: SHAUN KENT Pat. No: [id number] Study Date: 08/07/2017 11:00am , Age: 08 1990, 26 Pregnancies: 1, Para 0 LMP: 03/08/2017 GA by LMP: 21w5d GA by US: 21w3d GA Selected: 21w5d (LMP) CHELY: 12/13/2017 Referring MD: Sterling Grant M.D. Fixture Repairer Fabricator: Bethany Blanchard RDMS CPT4: [id number] Hist/Ind: SYLVESTER CARLTON, BELEN IN ABD SCAN 1 MEASUREMENTS AGE GROWTH EVALUATION Measurement GA Range Srce %for GA Ratios ----- ---- ------- BPD 5.2 cm 21w6d (18r2k-60e7a) Hadl BPD 54% FL/BPD 0.71 HC 19.3 cm 21w3d (19w6d- 23w0d) Hadl HC 42% FL/AC 0.22 APD 5.3 cm APD HC/AC 1.15 (1.05 - 1.24) TAD 5.4 cm TAD CI 0.79 (0.70 - 0.86) AC 16.8 cm 21w4d (74b5x-28e9u) Hadl AC 47% FL 3.7 cm 21w3d (70z6c-45x4p)Hadl FL 43% HL 3.4 cm 21w4d (02o1z-29w6d) Anthony HL 48% GA for sonogram 21w3d (70e1a-37j5c) Weight Estimate: based on (BPD,HC,AC,FL) Hadlock Weight: 449 gm (384-515) Hadlock : 0lbs, 15oz Normal: 459 gm (308-902) Amanda Wt% 47% for 21.7 wks Cervical Length: 3.6 cm Heart Rate: 148 bpm MATERNAL ANATOMY Ovaries LxHxW (cm) Right 4.6 x 2.5 x 2.2 Vol: 13.2cc Left 3.7 x 1.9 x 3.8 Vol: 14.0cc CLINICAL SUMMARY Type ofGestation: Spear Intrauterine in vertex presentation. size is appropriate for gestational age by weight. motion and organs seen: heart motion seen body and limb movements seen Four chamber heart observed [facility] NAME: SHAUN KENT Radiology Department PHYS: Sterling oBston MD [address] : 1990 AGE: 26 SEX: F [place], [place] [address] LOC: UNK PHONE #: [phone] EXAM DATE: 08/07/2017 STATUS: DEP ER FAX #: [phone] RAD NO: Page 1 Signed Report (CONTINUED) Patient Name: SHAUN KENT Unit No: [id number] EXAMS: CPT CODE: [id number] US PREG AFTER 1ST TRI 13577 <Continued> Left ventricular outflow tract (LVOT) seen Right ventricular outflow tract (RVOT) seen Regular cardiac rhythm observed Normal intracranial anatomy seen Umbilical cord insertion in fetus seen stomach, Renal Fossa, Bladder and Spine seen Three vessel umbilical cord noted abnormalities observed: None seen at this exam Placental location: Posterior Placental maturity : Grade 1 There is no evidence of placenta previa. Amniotic fluid volume is normal. Uterus and adnexa: No significant abnormalities seen U terus and adnexa: No sonographic evidence of abruption. Jacki Gallagher M.D. Electronic Signature 08/07/2017 12:13pm at 1213 Reported and signed by: Jacki Gallagher MD CC: Sterling Grant Technologist: Bethany Blanchard RDMS Probe: Trnscrbd D/ (1213) t.SDR.NMG Orig Print D/T: S: 08/07/2017 (1213) [facility] NAME: SHAUN KENT Radiology Department PHYS: Sterling Boston MD [address] : 1990 AGE: 26 SEX: F [place], [place] [address] LOC: UNK PHONE #: [phone] EXAM DATE: 08/07/2017 STATUS: DEP ER FAX #: [phone] RAD NO: Page 2 Signed Report Patient Name: SHAUN KENT Unit No: [id number] EXAMS: CPT CODE: [id number] US PREG AFTER 1ST TRI 97185 <Continued> [facility] NAME: SHAUN KENT Radiology Department PHYS: Sterling Boston MD [address] : 1990 AGE: 26 SEX: F [place], [place] [address] LOC: UNK PHONE #: [phone] EXAM DATE: 08/07/2017 STATUS: DEP ER FAX #: [phone] RAD NO: Page 3 Signed Report
[2022-05-20 18:16] LABS: Absolute Lymphocytes (CBC) 2.5 K/uL (0.7-4.9); Hematocrit 34.8 % (36.0-45.0); Lymphocytes % 29.9 % (15.3-44.8); MCV 69.9 fL (80-100); RBC Red Blood Cell Count 4.98 M/uL (3.86-4.86)
[2022-05-20 18:29] LABS: Potassium 3.9 mmol/L (3.5-5.1)
--- NOTE | 2022-05-20 18:57 | RAD REPORT ---
EXAM DESCRIPTION: US - Transvaginal Study Probe - 05/20/2022 6:48 pm CLINICAL HISTORY: VAGINAL BLEEDING Pelvic pain. COMPARISON: TRANSVAGINAL STUDY PROBE dated 07/14/2012 FINDINGS: The uterus is normal in size, shape and echotexture. The uterus measures 10.1 cm The endometrial stripe measures 2.4 cm Both ovaries are normal in size, shape and echotexture. The right ovary measures 4 x 2.3 x 3 cm with volume of 14.4 cc. The left ovary measures 2.1 x 2.5 x 3 cm with volume of 8.2 cc. No ovarian or pa rovarian lesions. No adnexal masses. Normal Doppler blood flow was demonstrated to both ovaries. No significant pelvic ascites. IMPRESSION: Endometrial thickening. The degree of thickening is abnormal even for a premenopausal fe male. Recommend gynecologic referral and/or consultation. Bilateral ovarian blood flow present.
--- NOTE | 2022-05-20 19:04 | ER ---
Nurse's Notes [facility] Name: Marie Rubio Age: 31 yrs Sex: Female : 1990 Arrival Date: 05/20/2022 Time: 17:22 Bed DIS4 Private MD: Diagnosis: Abnormal uterine and vaginal bleeding, unspecified Presentation: 05/20 17:53 Chief complaint: Patient states: vaginal bleeding and abd cramping that began February. Pt reports fatigue and sent here by doctor for possible "low blood count". Coronavirus screen: At this time, the client does not indicate any symptoms associated with coronavirus-19. Ebola Screen: Patient denies travel to an Ebola-affected area in the 21 days before illness onset. Initial Sepsis Screen: Does the patient meet any 2 criteria? HR > 90 bpm. Does the patient have a suspected source of infection? No. Patient's initial sepsis screen is negative. Risk Assessment: Do you want to hurt yourself or someone else? Patient reports no desire to harm self or others. Onset of symptoms was May 2022. 17:53 Acuity: NABIL 3 aa5 17:53 Method Of Arrival: Ambulatory aa5 Historical: - Allergies: 17:55 Codeine; aa5 - PMHx: 17:55 Asthma; aa5 17:56 PCOS; aa5 - PSHx: 17:56 section; Ovary dettached from wall of uterus; aa5 - Immunization history:: Adult Immunizations unknown. - Social history:: Smoking status: Patient denies any tobacco usage or history of. Assessment: 19:12 Reassessment: Patient is alert, oriented x 3, equal unlabored respirations, skin jl7 warm/dry/pink. pt seen by this RN on discharge pt verbalized understanding of and agrees to plan of care discharge instructions given pt ambulated with steady gait to exit. Vital Signs: 17:53 BP 120 / 79; Pulse 86; Resp 16 S; Temp 97.8(TE); Pulse Ox 100% on R/A; aa5 ED Course: 17:22 Patient arrived in ED. am2 17:53 Arm band placed on. aa5 17:54 Triage completed. aa5 17:56 Sanjuana Wren FNP-C [facility]. kb 17:56 Jesse Andrade MD is Attending Physician. kb 18:01 Initial lab(s) drawn, by me, sent to lab. Inserted saline lock: 20 gauge in right aa5 antecubital area, using aseptic technique. Blood collected. 18:49 US Transvaginal Study (Probe) In Process Unspecified. EDMS 19:13 IV discontinued, intact, bleeding controlled, No redness/swelling at site. Pressure jl7 dressing applied. Administered Medications: No medications were administered Outcome: 19:03 Discharge ordered by . ileana 19:13 Discharged to home ambulatory. jl7 19:13 Condition: stable 19:13 Discharge instructions given to patient, Instructed on discharge instructions, follow up and referral plans. Demonstrated understanding of instructions, follow-up care. 19:13 Patient left the ED. jl7 Signatures: Dispatcher [employer] EDMS aSnjuana Wren, ENTERPRISE ENGINEER-C ENTERPRISE ENGINEER-Saskia Moss, RN RN aa5 Bernadette Holland RN RN jl7 Zahira Obregon
--- NOTE | 2022-05-20 19:04 | EDPHYS ---
Physician Documentation [facility] Name: Marie Rubio Age: 31 yrs Sex: Female : 1990 Arrival Date: 05/20/2022 Time: 17:22 Bed DIS4 Private MD: ED Physician Jesse Andrade HPI: 05/20 17:57 This 31 yrs old Female presents to ER via Ambulatory with complaints of Vaginal kb Bleeding, Abnormal Lab Results - low iron. 17:57 The patient presents with vaginal bleeding that is heavy. Onset: The symptoms/episode kb began/occurred 3 month(s) ago. Modifying factors: The symptoms are alleviated by nothing, the symptoms are aggravated by nothing. Associated signs and symptoms: Pertinent positives: vaginal bleeding. Severity of symptoms: At their worst the symptoms were moderate, in the emergency department the symptoms are unchanged. The patient has not experienced similar symptoms in the past. The patient has been recently seen by a physician: the patient's primary care provider, with similar presenting complaints, and was sent to the [facility] Emergency Department for further evaluation. Pt reports she has had vaginal bleeding since February. States she was supposed to have a hysterectomy, but wanted a second opinion so she hasn't scheduled it yet. Was seen by PCP today and sent to ER for evaluation . Historical: - Allergies: 17:55 Codeine; aa5 - PMHx: 17:55 Asthma; aa5 17:56 PCOS; aa5 - PSHx: 17:56 section; Ovary dettached from wall of uterus; aa5 - Immunization history:: Adult Immunizations unknown. - Social history:: Smoking status: Patient denies any tobacco usage or history of. ROS: 17:57 Constitutional: Negative for fever, chills, and weight loss. kb 17:57 Respiratory: Positive for dyspnea on exertion. 17:57 : Positive for vaginal bleeding. 17:57 Neuro: Positive for weakness. 17:57 All other systems are negative. Exam: 17:57 Constitutional: This is a well developed, well nourished patient who is awake, alert, kb and in no acute distress. Head/Face: Normocephalic, atraumatic. ENT: Moist Mucous membranes Cardiovascular: Regular rate and rhythm with a normal S1 and S2. No gallops, murmurs, or rubs. No pulse deficits. Respiratory: Respirations even and unlabored. No increased work of breathing. Talking in full sentences Abdomen/GI: Soft, non-tender. No distention Skin: Warm, dry with normal turgor. Normal color. MS/ Extremity: Pulses equal, no cyanosis. Neurovascular intact. Full, normal range of motion. Neuro: Awake and alert, GCS 15, oriented to person, place, time, and situation. Moves all extremities. Normal gait. Vital Signs: 17:53 BP 120 / 79; Pulse 86; Resp 16 S; Temp 97.8(TE); Pulse Ox 100% on R/A; aa5 MDM: 17:56 Patient medically screened. kb 17:57 Data reviewed: vital signs, nurses notes. kb 17:59 Differential diagnosis: dysmenorrhea, uterine fibroids. kb 18:23 Consideration of Admission/Observation Escalation of care including kb admission/observation considered. Management of patient was discussed with the following: Primary Care Provider: Bethany Bajwa NP. 19:02 Counseling: I had a detailed discussion with the patient and/or guardian regarding: the kb historical points, exam findings, and any diagnostic results supporting the discharge/admit diagnosis, lab results, radiology results, the need for outpatient follow up, an OB/Gyne specialist, to return to the emergency department if symptoms worsen or persist or if there are any questions or concerns that arise at home. ED course: Pt will call her [facility]QU[facility] ADVISOR in [place] in the morning for follow up. . 05/20 17:48 Order name: CBC with Diff; Complete Time: 18:20 kb 05/20 17:48 Order name: Basic Metabolic Panel; Complete Time: 18:29 kb 05/20 17:48 Order name: IV Start; Complete Time: 18:01 kb 05/20 17:48 Order name: US Transvaginal Study (Probe); Complete Time: 18:58 kb 05/20 17:48 Order name: Urine Dipstick-Ancillary (obtain specimen) 05/20 17:48 Order name: Urine Test (obtain specimen) kb Administered Medications: No medications were administered Disposition Summary: 05/20/22 19:03 Discharge Ordered Location: Home kb Condition: Stable kb Diagnosis - Abnormal uterine and vaginal bleeding, unspecified kb Followup: kb - With: Emergency Department - When: As needed - Reason: Worsening of condition Followup: kb - With: Private Physician - When: 2 - 3 days - Reason: Recheck today's complaints, Continuance of care, Re-evaluation by your physician Discharge Instructions: - Discharge Summary Sheet kb - Abnormal Uterine Bleeding, [id number] kb Forms: - Medication Reconciliation Form kb - Thank You Letter kb - Antibiotic Education kb - Prescription Opioid Use kb Signatures: Dispatcher [employer] Sanjuana Gonzalez, Saskia Mayberry, RN RN aa5
[2022-05-20 19:18] VITALS: BP 120/79; TEMP 97.8; O2SAT 100
== END 2022-05-20 19:13 | disposition home or self-care (01) ==
LOC: ER 17:16
DX: N93.9 Abnormal uterine and vaginal bleeding, unspecified (principal); R53.1 Weakness; R06.00 Dyspnea, unspecified; Z88.5 Allergy status to narcotic agent
CPT/HCPCS: 36415; 76830; 80048; 85025